=== PATIENT | male | born 1935 | race Caucasian/White ===

== ENCOUNTER 2018-05-26 10:03 | Inpatient (IN) | payer MEDICARE, OTHER ==
[~2018-05-26] VITALS: Ht 172.7 cm; Wt 117.9 kg
[~2018-05-26 10:03] MED LIST: ACIDOPHILUS1 EAC3 PO; CARVEDILOL6.25 MG PO; COQ-10100 MG PO; FISH OIL 1,001000 M2 PO; FUROSEMIDE 40 M40 M1 PO; LEVOTHYROXIN0.075 MG PO; LISINOPRIL5 MG PO; LOVASTATIN 20 M20 MG PO; MAGOX 400400 MG PO; MILK OF MA2400 MG/10 PO; PERCOCET PO; PLAVIX 75 MG TA75 M1 PO; VITAMIN E400 UNIT PO
[2018-05-26 10:05] VITALS: BP 107/75
[2018-05-26] MEDS ORDERED: COREG6.25 MG PO (10:17)
[2018-05-26] MEDS ORDERED: FLECAINIDE ACET50 M1 PO (10:18)
[2018-05-26] MEDS ORDERED: CARVEDILOL3.125 MG PO (10:19)
[2018-05-26 10:40] LABS: ABSOLUTE BASOPHILS 0.1 thou/uL (0.0-0.2); ABSOLUTE EOSINOPHILS 0.1 thou/uL (0.0-0.7); ABSOLUTE LYMPHOCYTES 1.9 thou/uL (0.8-5.3); ABSOLUTE MONOCYTES 0.6 thou/uL (0.0-1.2); ABSOLUTE NEUTROPHILS 5.7 thou/uL (1.6-8.1); BASOPHILS 0.8 %; EOSINOPHILS 1.7 %; HEMATOCRIT 48.3 % (42.0-52.0); HEMOGLOBIN 16.1 gm/dL (14.0-18.0); MCHC 33.2 g/dL (28.0-37.0); MCV 99.1 fL (80.0-100.0); MONOCYTES 7.3 %; MPV 8.7 fl. (7.2-11.1); NUCLEATED RBCS 0 /100WBC; PLATELET COUNT* 147 thou/uL (150-400); POLYS 68.2 %; RBC 4.87 mil/uL (4.50-6.00); RDW-CV 14.7 % (10.5-14.5); WBC 8.4 thou/uL (4.0-11.0)
[2018-05-26 10:50] LABS: ANION GAP 5 mmol/L (7-16); APTT 28.9 Seconds (25.0-31.3); BUN 21 mg/dL (7-18); CALCIUM 8.9 mg/dL (8.5-10.1); CHLORIDE 103 mmol/L (98-107); CO2 28 mmol/L (21-32); CREATININE 1.1 mg/dL (0.6-1.3); GLUCOSE 154 mg/dL (70-99); INR 1.2; POTASSIUM 4.2 mmol/L (3.5-5.1); PROTIME 11.9 Seconds (9.20-11.50); SODIUM 136 mmol/L (136-145)
[2018-05-26 11:01] LABS: ALBUMIN 3.5 g/dL (3.4-5.0); ALKALINE PHOSPHATASE 58 U/L (46-116); NT-PRO BRAIN NAT PEPTIDE 1627 pg/mL (<300); SGOT 25 U/L (15-37); SGPT 36 U/L (30-65); TOTAL BILIRUBIN 1.2 mg/dL (<0.1-1.0); TOTAL PROTEIN 6.4 g/dL (6.4-8.2); TROPONIN-I LEVEL <0.06 ng/mL (<0.06)
[2018-05-26 13:50] VITALS: BP 102/71
--- NOTE | 2018-05-26 14:18 | NUR ---
PT ORIENTED TO ROOM AND UNIT. BED LOW AND LOCKED, SIDE RAILS UPX 3, CALL LIGHT IN REACH. WILL CONTINUE TO ASSESS.
[2018-05-26 16:00] VITALS: BP 122/79
--- NOTE | 2018-05-26 16:15 | EKG ---
[place] [address] ELECTROCARDIOGRAM REPORT Name: NEEL CLANCY Room: [address] ADM IN M.R.#: [id number] Admission: 05/26/18 Attend Phys: Abhishek Carlton MD Discharge: Date of : 33 Report #: [id number] THIS REPORT FOR: //name// [facility] ED Test Date: 2018-05-26 Test Time: 10:07:44 Pat Name: SHAIKH CLANCY Department: Room: [facility] Gender: M Licensed Clinician: MS : 1935 Requested By: Dante Hughes Order Number: [id number] MD: Brain Lew Measurements Intervals [place] Rate: 99 P: 36 PA: 69 QRS: -70 QRSD: 190 T: QT: 291 QTc: 374 Interpretive Statements Ventricular-paced complexes No further analysis attempted due to paced rhythm Baseline wander in lead(s) II,V1,V2,V3,V4,V5 Compared to ECG 11/15/2016 09:42:32 p wave sensing no longer noted Electronically Signed On 05-26-2018 16:15:16 SALES STRATEGY MANAGER by Brain Lew [email or web address] <ELECTRONICALLY SIGNED> By: Brain Lew MD, FACC 05/26/18 1615 1007 1007 Brain Lew MD, FAC /EPI
--- NOTE | 2018-05-26 16:29 | NUR ---
DR. ARAUZ INSTRUCT THAT IT IS OK FOR PT TO HAVE PLAVIX WITH LOVENOX.
[2018-05-26 20:21] VITALS: BP 116/69
[2018-05-26] MEDS ORDERED: ATORVASTATIN CA40 MG PO (21:12)
[2018-05-27] VITALS: BP 109/70
[2018-05-27 04:00] VITALS: BP 123/74
[2018-05-27 05:31] LABS: ABSOLUTE LYMPHOCYTES 1.6 thou/uL (0.8-5.3); ABSOLUTE MONOCYTES 0.5 thou/uL (0.0-1.2); ABSOLUTE NEUTROPHILS 12.1 thou/uL (1.6-8.1); BASOPHILS 0.3 %; HEMATOCRIT 47.2 % (42.0-52.0); HEMOGLOBIN 15.9 gm/dL (14.0-18.0); LYMPHOCYTES 11.1 %; MCH 33.1 pg (26.0-34.0); MCHC 33.6 g/dL (28.0-37.0); MCV 98.7 fL (80.0-100.0); MONOCYTES 3.6 %; MPV 9.1 fl. (7.2-11.1); NUCLEATED RBCS 0 /100WBC; PLATELET COUNT* 140 thou/uL (150-400); RBC 4.78 mil/uL (4.50-6.00); RDW-CV 14.4 % (10.5-14.5); WBC 14.3 thou/uL (4.0-11.0)
--- NOTE | 2018-05-27 05:48 | NUR ---
PT IS ABLE TO COMMUNICATE HIS NEEDS TO STAFF EFFECTIVELY. HE HAS DENIED THE NEED FOR PAIN MEDICATION UP TO THIS TIME. HE HAS BEEN NPO SINCE SUPPER TIME FOR A LIPID PANEL BLOOD DRAW THIS MORNING.
[2018-05-27 06:13] LABS: ANION GAP 6 mmol/L (7-16); BUN 19 mg/dL (7-18); CALCIUM 9.2 mg/dL (8.5-10.1); CHLORIDE 100 mmol/L (98-107); CHOLESTEROL 128 mg/dL (<200); CO2 29 mmol/L (21-32); CREATININE 1.1 mg/dL (0.6-1.3); GLUCOSE 148 mg/dL (70-99); HDL CHOLESTEROL 41 mg/dL (>40); LDL CHOLESTEROL 75 mg/dL (<100); SODIUM 135 mmol/L (136-145); TC:HDL 3.1 Ratio (Not establshd); TRIGLYCERIDE 61 mg/dL (<150); VLDL 12 mg/dL (<40)
[2018-05-27 06:14] LABS: SERUM ASSESSMENT Clear
[2018-05-27 07:44] VITALS: BP 114/73
--- NOTE | 2018-05-27 08:21 | NUR ---
RECEIVED REPORT FROM NIGHT NURSE. ASSUMED CARE OF PATIENT. PATIENT IS AXOX4, DENIES ANY PAIN, NAUSEA OR SHORTNESS OF AIR AT THIS TIME. PATIENTS GOALS FOR TODAY ARE TO GO HOME, HE DOESN'T WANT TO BE IN THE HOSPITAL ANYMORE, STATES HE FEELS BETTER. MEDS TAKEN THIS AM, NO OTHER COMPLAINTS AT THIS TIME. BED IN LOWEST POSITION, CALL LIGHT IN REACH, PROFESSIONAL NURSING ASSISTANT IN PLACE.
[2018-05-27] MEDS ORDERED: ASPIR 8181 M1 PO (11:29)
[2018-05-27] MEDS ORDERED: METOLAZONE 5 MG5 MG PO (11:40)
[2018-05-27 11:49] VITALS: BP 114/73
--- NOTE | 2018-05-27 12:29 | NUR ---
PATIENT D/C TO HOME WITH . TAKEN BY WHEELCHAIR WITH ALL BELONGINGS AND DISCHARGE PAPERWORK. ALL QUESTIONS ANSWERED. NO PRESCRIPTIONS.
--- NOTE | 2018-05-27 14:46 | 2DMMODE ---
[place] [address] 2 D/M-MODE ECHOCARDIOGRAM Name: NEEL CLANCY Room: [address] IN [facility]#: [id number] Admission: 05/26/18 Attend Phys: Abhishek Carlton, Discharge: 05/27/18 Date of : 33 Date of Service: 05/27/18 1446 Report #: [id number] THIS REPORT FOR: //name// APPROVED REPORT Study performed: 05/27/2018 11:03:03 EXAM: Comprehensive 2D, Doppler, and color-flow Echocardiogram Patient Location: In-Patient Room #: [facility] Status: routine BSA: 2.28 HR: 69 bpm BP: 114/73 mmHg Rhythm: NSR Other Information Study Quality: Good Indications Congestive Heart Failure Dyspnea 2D Dimensions IVSd: 16.85 (7-11mm) LVOT Diam: 20.73 (18-24mm) LVDd: 46.07 mm PWd: 13.72 (7-11mm) Ascending Ao: 39.06 (22-36mm) LVDs: 30.26 (25-40mm) Aortic Root: 37.57 mm Volumes Left Atrial Volume (Systole) LA ESV Index: 29.80 mL/m2 Aortic Valve AoV Peak Ta.: 1.26 m/s AO Peak Gr.: 6.38 mmHg LVOT Max P.16 mmHg AO Mean Gr.: 3.65 mmHg LVOT Mean P.42 mmHg LVOT Max V: 1.02 m/s AO V2 VTI: 19.28 cm LVOT Mean V: 0.75 m/s SHARONDA (VTI): 3.08 cm2 LVOT V1 VTI: 17.61 cm TDI Medial E' Ta.: 0.12 m/s Lateral E' Ta.: 0.15 m/[place] [address] 2 D/M-MODE ECHOCARDIOGRAM Name: NEEL CLANCY Room: [address] IN M.R.#: [id number] Admission: 05/26/18 Attend Phys: Abhishek Carlton, Discharge: 05/27/18 Date of : 33 Date of Service: 05/27/18 1446 Report #: [id number] Tricuspid Valve RAP Estimate: 5.00 mmHg TR Peak Gr.: 24.01 mmHg RVSP: 29.00 mmHg PA Pressure: 29.00 mmHg Left Ventricle The left ventricle is normal size. There is normal LV segmental wall motion. Paradoxical septal motion consistent with conduction abnormality. Moderate concentric left ventricular hypertrophy. Left ventricular systolic function is normal. The left ventricular ejection fraction is within the normal range. LVEF is 55-60%. The left ventricular diastolic function is normal. Right Ventricle The right ventricle is normal size. The right ventricular systolic function is normal. Pacemaker lead is present in the right ventricle. Atria Left atrium is mildly dilated. The right atrium size is normal. Aortic Valve Mild aortic valve sclerosis. Trace aortic regurgitation. There is no aortic valvular stenosis. Mitral Valve The mitral valve is normal in structure. Mild mitral regurgitation. No evidence of mitral valve stenosis. Tricuspid Valve The tricuspid valve is normal in structure. Mild tricuspid regurgitation. No pulmonary hypertension. Pulmonic Valve The pulmonary valve is normal in structure. There is no pulmonic valvular regurgitation. Great Vessels The aortic root is normal in size. IVC is normal in size and collapses >50% with inspiration. Pericardium There is no pericardial effusion. <Conclusion> [place] [address] 2 D/M-MODE ECHOCARDIOGRAM Name: NEEL CLANCY Room: [address] IN .R.#: [id number] Admission: 05/26/18 Attend Phys: Abhishek Carlton, Discharge: 05/27/18 Date of : 34 Date of Service: 05/27/18 1446 Report #: [id number] Mild aortic valve sclerosis. There is no aortic valvular stenosis. Trace aortic regurgitation. LVEF is 55-60%. There is normal LV segmental wall motion. Paradoxical septal motion consistent with conduction abnormality. Mild mitral regurgitation. No evidence of mitral valve stenosis. <ELECTRONICALLY SIGNED> By: Matthew Chavez MD, FACC 05/27/18 1446 1446 1446 Matthew Chavez MD, FAC /INF
--- NOTE | 2018-05-27 15:07 | NUR ---
INITIAL ASSESSMENT: YUDELKA SPK W/PT & HIS SPOUSE, SEPTEMBER TO DISCUSS D/C PLANNING, HOME SITUATION, & TO EDU ON CM ROLE. PT A&OX4. LIVES @ HOME W/SPOUSE. SPOUSE ASSIST W/ADLs. PT HAS W/C & WALKER @ HOME. PT DRIVES. NO HX W/SNF, BUT USED HH IN THE PAST WHEN LIVED IN [place]. PT DENIES ANY NEEDS AT THIS TIME. CM TO CONT TO FOLLOW PT TO PROVIDE ASSISTANCE PRN.
--- NOTE | 2018-05-28 12:35 | CON ---
[address] [address] CONSULTATION Name: NEEL CLANCY Room: [address] IN M.R.#: [id number] Admission: 05/26/18 Attend Phys: Abhishek Carlton MD Discharge: 05/27/18 Date of : 34 Report #: [id number] THIS REPORT FOR: //name// CC: Abhishek Mcclain DATE OF SERVICE: 05/26/2018 HISTORY OF PRESENT ILLNESS: The patient is an 82-year-old white male who I was asked to see in the hospital today because of shortness of breath. The patient apparently presented back in 2008 with arm pain. He was found to have coronary artery disease and underwent triple vessel coronary artery bypass surgery in [place]. He had coronary stents about a year later. He apparently had restenosis, required another stent a year after that. Recently, he has been followed by my partner, Dr. Davies. He presented 2 years ago with heart block and had a permanent pacemaker inserted by Dr. Davies. On the monitor, he apparently was noted to have atrial arrhythmias and was placed on flecainide. He has a long history of edema. He is also morbidly obese, standing 5 feet 8 inches, weighing 270 pounds. Recently, Dr. Davies increased his dose of Lasix. However, the patient continues to be short of breath and has swelling. He has been waking up at night short of breath. He complained of fatigue. He came to the Emergency Room and was admitted. He denied any fever, cough, chest pain. He notes occasional racing of his heart. PAST MEDICAL HISTORY: He has had hip surgery, hypertension, hyperlipidemia. MEDICATIONS: Consists of lovastatin, oxycodone, Synthroid, clopidogrel, lisinopril, furosemide, carvedilol, flecainide. ALLERGIES: He has no known drug allergies. FAMILY HISTORY: Negative for heart disease. SOCIAL HISTORY: He is . He and his live in [place]. No smoking. Quit alcohol years ago. REVIEW OF SYSTEMS: He has had no history of stroke, asthma, peptic ulcer disease, liver disease, kidney disease, cancer, psychiatric illness, chronic skin condition. PHYSICAL EXAMINATION: GENERAL: Revealed an obese, elderly male, lying in bed. He appeared in no distress. VITAL SIGNS: He had a blood pressure of 110/60. His pulse [place] [address] CONSULTATION Name: NEEL CLANCY Room: [address]#: [id number] Admission: 05/26/18 Attend Phys: Abihshek Carlton MD Discharge: 05/27/18 Date of : 34 Report #: [id number] afebrile. HEENT: He was anicteric. Conjunctivae pink. Mucous members moist. NECK: Veins difficult to assess due to obesity. No carotid bruits. CHEST: Decreased breath sounds at bases. CARDIOVASCULAR: Regular rate and rhythm without gallops or murmurs. ABDOMEN: Obese. EXTREMITIES: Had trace edema. Dorsalis pedis pulse cannot be palpated. SKIN: Cool and dry. NEUROLOGIC: Nonfocal. LYMPH: No adenopathy. MUSCULOSKELETAL: No joint effusion. LABORATORY DATA: His ECG showed a ventricular paced rhythm. His workup, he had an echocardiogram in 10/2016 that showed ejection fraction of 60%, biatrial enlargement, aortic sclerosis. Workup in the Emergency Room today, he had a portable chest x-ray that showed cardiomegaly, otherwise clear lung horton. CT scan of the chest using a PE protocol today showed no pulmonary embolus, normal heart size. Lab work, sodium 136, creatinine 1.1, glucose is 154. Troponin 0.06. BNP 1627. White blood cell count 8.4, hemoglobin 16.1. IMPRESSION AND RECOMMENDATIONS: 1. Acute on chronic diastolic heart failure. Recommend Lasix. 2. Previous coronary artery bypass surgery. No recent angina. 3. History of atrial arrhythmias. The patient is on flecainide. 4. Hypertension. The patient has been on an KERI inhibitor and beta hilton. 5. Hyperlipidemia. The patient is on a statin drug. 6. History of heart block. The patient has a pacemaker in place. <ELECTRONICALLY SIGNED> By: Brain Lew MD, FACC 05/28/18 1235 1500 58Brain Lew MD, FAC /nt
== END 2018-05-27 12:30 | disposition home or self-care (01) | DRG 293 ==
LOC: M.ERS 10:03 → M.2W 12:17 → M.TBA-ER 12:17 → M.2W 14:09
PROVIDERS: Family Medicine; ADMIT Internal Medicine
DX: I11.0 Hypertensive heart disease with heart failure (principal); I50.33 Acute on chronic diastolic (congestive) heart failure; G47.33 Obstructive sleep apnea (adult) (pediatric); E66.01 Morbid (severe) obesity due to excess calories; E03.9 Hypothyroidism, unspecified; I48.0 Paroxysmal atrial fibrillation; I25.10 Atherosclerotic heart disease of native coronary artery without angina pectoris; M19.90 Unspecified osteoarthritis, unspecified site; E78.5 Hyperlipidemia, unspecified; Z96.641 Presence of right artificial hip joint; I25.2 Old myocardial infarction; Z95.0 Presence of cardiac pacemaker; Z95.1 Presence of aortocoronary bypass graft; Z79.02 Long term (current) use of antithrombotics/antiplatelets; Z79.899 Other long term (current) drug therapy; Z68.39 Body mass index [BMI] 39.0-39.9, adult

== ENCOUNTER → 2018-05-30 | Outpatient (CLI) | payer MEDICARE, OTHER ==
[~2018-05-30] MED LIST changes: +ASPIR 8181 M1 PO; +ATORVASTATIN CA40 MG PO; +CARVEDILOL3.125 MG PO; +COREG6.25 MG PO; +FLECAINIDE ACET50 M1 PO; +METOLAZONE 5 MG5 MG PO
== END ==
LOC: M.SLEEPLAB 10:00
DX: G47.33 Obstructive sleep apnea (adult) (pediatric) (principal)

== ENCOUNTER 2018-07-13 14:37 | Emergency (ER) | payer MEDICARE, OTHER ==
[~2018-07-13] VITALS: Ht 172.7 cm; Wt 122.5 kg
[2018-07-13] MEDS ORDERED: VITAMIN D3400 UNI2 PO (15:00)
[2018-07-13] MEDS ORDERED: COQ-10100 MG PO (15:00)
[2018-07-13 15:33] LABS: ABSOLUTE EOSINOPHILS 0.2 thou/uL (0.0-0.7); ABSOLUTE LYMPHOCYTES 1.4 thou/uL (0.8-5.3); ABSOLUTE MONOCYTES 0.6 thou/uL (0.0-1.2); ABSOLUTE NEUTROPHILS 5.4 thou/uL (1.6-8.1); BASOPHILS 0.6 %; EOSINOPHILS 2.3 %; HEMATOCRIT 44.2 % (42.0-52.0); HEMOGLOBIN 14.7 gm/dL (14.0-18.0); LYMPHOCYTES 18.7 %; MCH 32.3 pg (26.0-34.0); MCHC 33.3 g/dL (28.0-37.0); MONOCYTES 8.2 %; MPV 8.4 fl. (7.2-11.1); NUCLEATED RBCS 0 /100WBC; PLATELET COUNT* 155 thou/uL (150-400); POLYS 70.2 %; RBC 4.56 mil/uL (4.50-6.00); RDW-CV 15.7 % (10.5-14.5); WBC 7.7 thou/uL (4.0-11.0)
[2018-07-13 15:48] LABS: ANION GAP 8 mmol/L (7-16); BUN 24 mg/dL (7-18); CALCIUM 8.8 mg/dL (8.5-10.1); CHLORIDE 105 mmol/L (98-107); CO2 29 mmol/L (21-32); CREATININE 1.3 mg/dL (0.6-1.3); GLUCOSE 118 mg/dL (70-99); POTASSIUM 3.9 mmol/L (3.5-5.1); SODIUM 142 mmol/L (136-145); TROPONIN-I LEVEL <0.06 ng/mL (<0.06)
[2018-07-13 15:50] LABS: ALBUMIN 3.2 g/dL (3.4-5.0); ALKALINE PHOSPHATASE 66 U/L (46-116); NT-PRO BRAIN NAT PEPTIDE 2788 pg/mL (<300); SGOT 30 U/L (15-37); SGPT 34 U/L (30-65); TOTAL BILIRUBIN 1.3 mg/dL (<0.1-1.0)
[2018-07-13 15:56] LABS: BE 1.7 mmol/L (-2 to +3); PCO2 37.3 mmHg (35.0-45.0); PO2 69.3 mmHg (75.0-100.0); pH 7.452 (7.340-7.450)
[2018-07-13 16:03] LABS: INR 1.2; PROTIME 12.7 Seconds (9.20-11.50)
[2018-07-13 17:25] VITALS: BP 122/87
--- NOTE | 2018-07-14 09:59 | EKG ---
[place] [address] ELECTROCARDIOGRAM REPORT Name: NEEL CLANCY [id number] Admission: 07/13/18 Attend Phys: Discharge: 07/13/18 Date of : 34 Report #: [id number] THIS REPORT FOR: //name// [facility] ED Test Date: 2018-07-13 Test Time: 15:00:22 Pat Name: NEEL CLANCY Department: Room: Gender: M Test Center Manager: JAGDEEP : 1935 Requested By: Lidia Cardenas Order Number: [id number] MD: Brain Lew Measurements Intervals [place] Rate: 69 P: 0 MO: 174 QRS: -51 QRSD: 211 T: 103 QT: 535 QTc: 574 Interpretive Statements Ventricular-paced rhythm No further analysis attempted due to paced rhythm Compared to ECG 05/26/2018 10:07:44 No significant changes Electronically Signed On 07-14-2018 9:59:05 CDT by Brain Lew [email or web address] <ELECTRONICALLY SIGNED> By: Brain Lew MD, [facility] 07/14/18 0959 1500 1500 Brain Lew MD, FAC /EPI
== END 2018-07-13 17:26 | disposition home or self-care (01) ==
LOC: M.ERS 14:37
PROVIDERS: Personal Emergency Response Attendant
DX: I50.9 Heart failure, unspecified (principal); R60.0 Localized edema; G47.33 Obstructive sleep apnea (adult) (pediatric); E66.01 Morbid (severe) obesity due to excess calories; E03.9 Hypothyroidism, unspecified; I25.10 Atherosclerotic heart disease of native coronary artery without angina pectoris; M19.90 Unspecified osteoarthritis, unspecified site; Z96.641 Presence of right artificial hip joint; Z68.41 Body mass index [BMI] 40.0-44.9, adult

== ENCOUNTER 2018-07-19 13:20 | Inpatient (IN) | payer MEDICARE, OTHER ==
[~2018-07-19] VITALS: Ht 152.4 cm; Wt 128.4 kg
[2018-07-19] VITALS (17 sets, daily range): BP systolic 92–134; BP diastolic 61–101
[~2018-07-19 13:20] MED LIST changes: -LEVOTHYROXIN0.075 MG PO; +SYNTHROID75 MCG PO; +VITAMIN D3400 UNI2 PO
[2018-07-19] MEDS ORDERED: LOVASTATIN 20 M20 MG PO (13:27)
[2018-07-19 14:22] LABS: ABSOLUTE BASOPHILS 0.1 thou/uL (0.0-0.2); ABSOLUTE EOSINOPHILS 0.1 thou/uL (0.0-0.7); ABSOLUTE LYMPHOCYTES 2.4 thou/uL (0.8-5.3); ABSOLUTE NEUTROPHILS 7.4 thou/uL (1.6-8.1); BASOPHILS 0.9 %; EOSINOPHILS 0.9 %; HEMATOCRIT 45.6 % (42.0-52.0); HEMOGLOBIN 15.4 gm/dL (14.0-18.0); LYMPHOCYTES 21.9 %; MCH 32.5 pg (26.0-34.0); MCHC 33.8 g/dL (28.0-37.0); MCV 96.3 fL (80.0-100.0); MONOCYTES 9.1 %; MPV 8.7 fl. (7.2-11.1); NUCLEATED RBCS 0 /100WBC; PLATELET COUNT* 149 thou/uL (150-400); POLYS 67.2 %; RBC 4.74 mil/uL (4.50-6.00); RDW-CV 16.1 % (10.5-14.5); WBC 11.1 thou/uL (4.0-11.0)
[2018-07-19 14:36] LABS: APTT 29.8 Seconds (25.0-31.3); INR 1.3; PROTIME 13.4 Seconds (9.20-11.50)
[2018-07-19 14:50] LABS: ANION GAP 11 mmol/L (7-16); BUN 32 mg/dL (7-18); CALCIUM 9.1 mg/dL (8.5-10.1); CHLORIDE 100 mmol/L (98-107); CO2 25 mmol/L (21-32); CREATININE 1.6 mg/dL (0.6-1.3); GLUCOSE 149 mg/dL (70-99); POTASSIUM 4.7 mmol/L (3.5-5.1); SODIUM 136 mmol/L (136-145); TROPONIN-I LEVEL <0.06 ng/mL (<0.06)
[2018-07-19 14:54] LABS: ALBUMIN 3.5 g/dL (3.4-5.0); ALKALINE PHOSPHATASE 67 U/L (46-116); LIPASE 115 U/L (73-393); MAGNESIUM 2.2 mg/dL (1.8-2.4); NT-PRO BRAIN NAT PEPTIDE 6863 pg/mL (<300); SGOT 33 U/L (15-37); SGPT 37 U/L (30-65); TOTAL BILIRUBIN 1.6 mg/dL (<0.1-1.0); TOTAL PROTEIN 6.4 g/dL (6.4-8.2)
[2018-07-19 14:56] LABS: BE -2.7 mmol/L (-2 to +3); PCO2 29.6 mmHg (35.0-45.0); PO2 60.7 mmHg (75.0-100.0); pH 7.447 (7.340-7.450)
[2018-07-20] VITALS (11 sets, daily range): BP systolic 87–157; BP diastolic 63–94
[2018-07-20 10:41] LABS: HEMATOCRIT 44.8 % (42.0-52.0); HEMOGLOBIN 14.9 gm/dL (14.0-18.0); MCH 32.5 pg (26.0-34.0); MCHC 33.2 g/dL (28.0-37.0); MCV 97.9 fL (80.0-100.0); NUCLEATED RBCS 0 /100WBC; PLATELET COUNT* 140 thou/uL (150-400); RBC 4.57 mil/uL (4.50-6.00); RDW-CV 15.9 % (10.5-14.5); WBC 10.7 thou/uL (4.0-11.0)
[2018-07-20 10:53] LABS: ALBUMIN 3.1 g/dL (3.4-5.0); CALCIUM 8.8 mg/dL (8.5-10.1); CREATININE 1.4 mg/dL (0.6-1.3); PHOSPHORUS* 3.8 mg/dL (2.5-4.9); POTASSIUM 4.9 mmol/L (3.5-5.1); TOTAL BILIRUBIN 1.2 mg/dL (<0.1-1.0); TOTAL PROTEIN 6.1 g/dL (6.4-8.2)
[2018-07-20 11:11] LABS: ABSOLUTE LYMPHOCYTES 1.2 thou/uL (0.8-5.3); ABSOLUTE MONOCYTES 0.3 thou/uL (0.0-1.2); ABSOLUTE NEUTROPHILS 9.2 thou/uL (1.6-8.1)
[2018-07-20 11:12] LABS: ANISOCYTOSIS Occasional; PLATELET ESTIMATE DECREASED
--- NOTE | 2018-07-20 15:09 | EKG ---
[place] [address] ELECTROCARDIOGRAM REPORT Name: NEEL CLANCY Room: [address] ADM IN .R.#: [id number] Admission: 07/19/18 Attend Phys: rFank Charles MD Discharge: Date of : 34 Report #: [id number] THIS REPORT FOR: //name// [facility] ED Test Date: 2018-07-19 Test Time: 13:24:51 Pat Name: NEEL CLANCY Department: Room: [facility] Gender: M System Controller: JT : 1935 Requested By: Dante Hughes Order Number: [id number] MD: Brain Lew Measurements Intervals [place] Rate: 107 P: HI: 134 QRS: 234 QRSD: 173 T: 108 QT: 359 QTc: 479 Interpretive Statements ventricular-paced rhythm Compared to ECG 07/13/2018 15:00:22 rate increased Electronically Signed On 07-20-2018 15:09:00 CDT by Brain eLw [email or web address] <ELECTRONICALLY SIGNED> By: Brain Lew MD, [facility] 07/20/18 1509 1324 1324 Brain Lew MD, FAC /EPI
--- NOTE | 2018-07-20 15:09 | EKG ---
[place] [address] ELECTROCARDIOGRAM REPORT Name: NEEL CLANCY Room: [address] ADM IN M.R.#: [id number] Admission: 07/19/18 Attend Phys: Frank Charles MD Discharge: Date of : 34 Report #: [id number] THIS REPORT FOR: //name// [facility] ED Test Date: 2018-07-19 Test Time: 14:20:08 Pat Name: NEEL CLANCY Department: Room: [address] Gender: M Wash Barrel Leader: UNKNOWN : 1935 Requested By: Dante Hughes Order Number: [id number] Bhavesh MD: Brain Lew Measurements Intervals [place] Rate: 123 P: IA: 93 QRS: -74 QRSD: 222 T: 117 QT: 443 QTc: 634 Interpretive Statements ventricular-paced rhythm Electronically Signed On 07-20-2018 15:09:30 CDT by Brain Lew [email or web address] <ELECTRONICALLY SIGNED> By: Brain Lew MD, [facility] 07/20/18 1509 1420 1420 Brain Lew MD, FACC /EPI
[2018-07-21 00:01] VITALS: BP 114/70
[2018-07-21 01:23] LABS: HEMATOCRIT 44.5 % (42.0-52.0); HEMOGLOBIN 14.8 gm/dL (14.0-18.0); MCH 32.4 pg (26.0-34.0); MCHC 33.2 g/dL (28.0-37.0); MCV 97.7 fL (80.0-100.0); MPV 9.2 fl. (7.2-11.1); NUCLEATED RBCS 0 /100WBC; PLATELET COUNT* 155 thou/uL (150-400); RBC 4.56 mil/uL (4.50-6.00); RDW-CV 15.5 % (10.5-14.5); WBC 16.8 thou/uL (4.0-11.0)
[2018-07-21 04:00] VITALS: BP 114/78
[2018-07-21 04:48] LABS: ABSOLUTE MONOCYTES 0.5 thou/uL (0.0-1.2); ABSOLUTE NEUTROPHILS 15.3 thou/uL (1.6-8.1); PLATELET ESTIMATE ADEQUATE
[2018-07-21 04:49] LABS: POLYCHROMASIA 1+
[2018-07-21 08:00] VITALS: BP 106/74
[2018-07-21 12:00] VITALS: BP 98/62
--- NOTE | 2018-07-21 14:13 | CON ---
[address] [address] CONSULTATION Name: NEEL CLANCY Room: [address] IN M.R.#: [id number] Admission: 07/19/18 Attend Phys: Frank Charles MD Discharge: Date of : 34 Report #: [id number] THIS REPORT FOR: //name// CC: Richie Charles REQUESTING PHYSICIAN: Frank Charles MD INDICATION FOR CONSULTATION: Shortness of breath. HISTORY OF PRESENT ILLNESS: This is an 82-year-old gentleman. He has presented with increasing shortness of breath as well as swelling of lower extremities. He also is having significant atrial arrhythmias. The patient has a pacemaker, also has a previous history of atrial arrhythmias as well. Currently, he is being paced at a very variable ranged from a normal range at times. The weight is increasing up to 170. He does have a longstanding history of swelling of lower extremities. He does not report any increase in this recently. He does report increasing shortness of breath. He has had a cough with white, as well as yellow sputum. He is unable to describe if the sputum is different from baseline. There is no chest pain. He does not have upper respiratory complaints. The patient recently had a home sleep study performed, which shows severe obstructive sleep apnea. The patient says he does not currently have a CPAP at home. Per the records, he may have had a CPAP in the past, with which he may have been noncompliant. The patient was scheduled to be set up with CPAP again tomorrow. The patient's renal function at baseline is normal with a creatinine of 1.1. He did have an elevation in creatinine up to 1.6 yesterday. His previous chest x-rays raise the possibility of an underlying interstitial lung disease. He also has some infiltrates on the previous chest x-rays. There are no new findings on his new chest x-ray. The patient did wear BiPAP last night. The patient answers to the negative for 12 questions for review of systems except as mentioned above. PAST MEDICAL HISTORY: Severe obstructive sleep apnea. See recent home sleep study in the records: Coronary artery disease, status post CABG with congestive heart failure. It is despite the fact that his left ventricular ejection fraction on his last echo is normal at 55%-60%, status post pacemaker status. History of atrial arrhythmias, longstanding history of swelling of lower extremities, hypothyroidism, hyperlipidemia, morbid obesity, osteoarthritis, lumbar stenosis. SOCIAL HISTORY: Lifetime nonsmoker. No known history of heavy alcohol use or illegal drug use. ALLERGIES: No known drug allergies. CURRENT MEDICATIONS: List [place] [employer] [place] [address] CONSULTATION Name: NEEL CLANCY Room: [address] IN M.R.#: [id number] Admission: 07/19/18 Attend Phys: Frank Charles MD Discharge: Date of : 34 Report #: [id number] HOME MEDICATIONS: List also in [facility] reviewed. FAMILY HISTORY: Reviewed, not pertinent to current presentation. PHYSICAL EXAMINATION: GENERAL: He is alert, awake and oriented. He does appear to be anxious, has highly variable heart rate from [address] to 170 and a paced rhythm. VITAL SIGNS: Blood pressure is 127/61. He is afebrile with a temperature of 36.7. He is requiring 5 liters of oxygen to maintain O2 saturation in the low 90s. He is not on supplemental oxygen at home. His respiratory rate was around 20 at the time of my examination. Body mass index is elevated to 54. HEENT: Head is normocephalic and atraumatic. Pupils are equal and reactive. There is no throat erythema. Airway is Mallampati 3. NECK: Does not show raised JVP, asymmetry, mass or lymph nodes. CHEST: Symmetrical expansion on inspection and palpation. On auscultation, breath sounds are bilaterally equal, decreased. Expirations are prolonged. There are expiratory wheezes bilaterally. HEART: Regular with rate frequently varying though as mentioned above. Tachycardia noted. ABDOMEN: Mildly distended, nontender. EXTREMITIES: Lower extremities show 2+ edema, no calf tenderness. SKIN: Dry and intact. NEUROLOGICAL: Moves all extremities bilaterally equally and spontaneously with no focal deficit identified. LABORATORY DATA: The patient's chest x-ray done yesterday is reviewed and compared to the patient's previous chest x-rays, as well as the last CT chest. This is as described below in more detail. The patient's lab work from yesterday including arterial blood gases are in [facility] and these are reviewed with metabolic acidosis compensated is noted. ASSESSMENT AND PLAN: 1. Acute hypoxemic respiratory failure. The patient is having significant atrial arrhythmias. He also appears to be fluid overloaded. These are the primary etiologies of his acute hypoxemic respiratory failure. Note that he is not on oxygen at home. In addition, thromboembolism is not completely ruled out at this time. At this time, I strongly feel that we need to continue him on a BiPAP while asleep. A BiPAP of 14/8 with a rate of 12 is ordered while asleep and p.r.n. The patient did wear BiPAP at night yesterday. 2. Atrial arrhythmias/tachycardia/history of pacemaker placement. Cardiology service is on the case. I feel that a significant component of his respiratory failure/fluid overload is related to this. If his heart rate is brought under better control, then his fluid overload, as well as respiratory failure will improve. I would defer to the cardiology Service. 3. Fluid overload. See discussion as above. I will like to repeat some labs, as well as a chest x-ray now and see where we stand. [place] [address] CONSULTATION Name: CLANCY,NEEL [place] Room: [address] IN [facility].#: [id number] Admission: 07/19/18 Attend Phys: Frank Charles MD Discharge: Date of : 34 Report #: [id number] his fluid overload at this time will be rate control. Certainly, Lasix could be given. I did not order for now considering that there is elevation in creatinine on his last available lab work. 4. Bronchospasm. There is mention of chronic obstructive pulmonary disease on the records. Note, however, that he is a lifetime nonsmoker. It appears more likely to me that he either has developed acute bronchospasm now or has a previous history of bronchial asthma. It appears unlikely that he in fact has chronic obstructive pulmonary disease. Regardless, we will continue with Solu-Medrol as currently prescribed. Considering considerable arrhythmias, I was switched his bronchodilators over to Xopenex. 5. Severe obstructive sleep apnea. See recent home sleep study in the records, needs a CPAP or BiPAP set up at home. For now, I ordered BiPAP as mentioned above. 6. Pulmonary infiltrates. There are some pulmonary infiltrates on the patient's chest x-ray. This is not significantly changed compared with the patient's previous chest x-ray. Last CT shows some basilar infiltrates as well. I suspect that the patient may in fact have an underlying interstitial lung disease as well. While there is no definite evidence of a new infiltrate or pneumonia at this time, the patient is already on Levaquin and I decided to continue and make no change at this time. 7. Edema/evaluation for thromboembolic phenomenon. I will go ahead and do venous Dopplers. We will also go ahead and check a D-dimer. A low D-dimer will rule out pulmonary emboli. High D-dimer will be nondiagnostic for this patient. I do not intend to do a CTA chest, as this will be too high risk. Should the patient failed to improve, then empiric anticoagulation may need to be considered. I would defer to the cardiology Service if anticoagulation is needed from their point of view. 8. Acute renal insufficiency. See discussion above. 9. Possible underlying interstitial lung disease. After recovery from the current episode and when more euvolemic, I would favor obtaining a CT chest with high resolution cuts, as well as pulmonary function tests. The patient is critically ill at this time. Total time spent in critical care of this patient today is 36 minutes. <ELECTRONICALLY SIGNED> By: Karol Samaniego MD 07/21/18 1413 1029 0314Ajohnnie Tuttle MD /nt
[2018-07-21 16:01] VITALS: BP 114/84
[2018-07-21 22:00] VITALS: BP 129/79
[2018-07-22 04:00] VITALS: BP 135/81
[2018-07-22 05:32] LABS: ABSOLUTE LYMPHOCYTES 1.3 thou/uL (0.8-5.3); ABSOLUTE MONOCYTES 0.5 thou/uL (0.0-1.2); ABSOLUTE NEUTROPHILS 16.9 thou/uL (1.6-8.1); BASOPHILS 0.2 %; EOSINOPHILS 0.1 %; HEMATOCRIT 44.1 % (42.0-52.0); HEMOGLOBIN 14.7 gm/dL (14.0-18.0); LYMPHOCYTES 6.8 %; MCH 32.1 pg (26.0-34.0); MCHC 33.2 g/dL (28.0-37.0); MCV 96.7 fL (80.0-100.0); MONOCYTES 2.5 %; NUCLEATED RBCS 0 /100WBC; PLATELET COUNT* 173 thou/uL (150-400); POLYS 90.4 %; RBC 4.57 mil/uL (4.50-6.00); RDW-CV 16.1 % (10.5-14.5); WBC 18.7 thou/uL (4.0-11.0)
[2018-07-22 05:40] LABS: CALCIUM 9.4 mg/dL (8.5-10.1); CREATININE 1.6 mg/dL (0.6-1.3); POTASSIUM 5.3 mmol/L (3.5-5.1)
[2018-07-22 08:30] VITALS: BP 120/77
--- NOTE | 2018-07-22 10:03 | EKG ---
[place] [address] ELECTROCARDIOGRAM REPORT Name: NEEL CLANCY Room: [address] ADM IN M.R.#: [id number] Admission: 07/19/18 Attend Phys: Frank Charles MD Discharge: Date of : 34 Report #: [id number] THIS REPORT FOR: //name// [facility] Test Date: 2018-07-21 Test Time: 07:57:16 Pat Name: SHAIKHTRAMAINE MIMSS Department: Room: [facility] Gender: Service Agent: LINNEA : 1935 Requested By: Brain Lew Order Number: [id number] Reading MD: Matthew Chavez Measurements Intervals [place] Rate: 94 P: 0 IA: 171 QRS: -52 QRSD: 214 T: 126 QT: 425 QTc: 532 Interpretive Statements Ventricular-paced complexes No further analysis attempted due to paced rhythm Compared to ECG 07/19/2018 14:20:08 No significant changes Electronically Signed On 07-22-2018 10:03:17 CDT by Matthew Chavez [email or web address] <ELECTRONICALLY SIGNED> By: Matthew Chavez MD, FACC 07/22/18 1003 0757 0757 Matthew Chavez MD, [facility] /EPI
--- NOTE | 2018-07-22 16:17 | CON ---
[address] [address] CONSULTATION Name: NEEL CLANCY Room: [address] IN M.R.#: [id number] Admission: 07/19/18 Attend Phys: Frank Charles MD Discharge: Date of : 34 Report #: [id number] THIS REPORT FOR: //name// CC: Richie Charles DATE OF SERVICE: 07/20/2018 CARDIOLOGY CONSULTATION HISTORY OF PRESENT ILLNESS: The patient is an 82-year-old white male who I was asked to see in the hospital after he complained of weakness. The patient has an extensive past medical history. Most of the history is obtained from the patient's spouse who was present. The patient had coronary artery bypass surgery in [place] back in 2008. He apparently had presented with chest pain. He had triple vessel bypass surgery. The notes that then 8 months later, he required coronary artery stenting. In 2017, he had a permanent pacemaker inserted here at [facility] by Dr. Davies. According to the , Dr. Davies recommended Xarelto, but the patient refused in the past. He denies a history of atrial fibrillation. The patient apparently was just admitted here to [facility] a month ago with shortness of breath. He is felt to have diastolic heart failure. Recently, the patient has been weak and no appetite. He could not even stand up yesterday, so paramedics were called. He was brought here to [facility]. He was noted to be tachycardic and Cardiology consultation requested. He denies recent chest pain. He does notice heart racing. He has felt lightheaded. PAST MEDICAL HISTORY: He has had previous hip surgery. He has hypertension. He has sleep apnea and uses CPAP. MEDICATIONS: On admission consisted of flecainide, aspirin, lovastatin, Synthroid, Plavix, lisinopril, Lasix, carvedilol. ALLERGIES: He has no known drug allergies. FAMILY HISTORY: Unknown since his mother was . SOCIAL HISTORY: He is . He and his live in [place]. 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 No smoking or alcohol use. REVIEW OF SYSTEMS: He is overweight, standing 5 feet 8 inches, weighing 270 pounds. He has sleep apnea, uses CPAP. No history of peptic ulcer disease, liver disease, kidney disease, cancer, psychiatric illness, [place] [address] CONSULTATION Name: LUCA CLANCYTRAMAINE [place] Room: [address]#: [id number] Admission: 07/19/18 Attend Phys: Frank Charles MD Discharge: Date of : 34 Report #: [id number] PHYSICAL EXAMINATION: GENERAL: Revealed an elderly obese male lying in bed. He appeared in no acute distress. VITAL SIGNS: He had a blood pressure of 100/68, pulse is 100 and irregular, he is afebrile. HEENT: He is anicteric. Conjunctivae pink. Mucous membranes moist. NECK: Veins cannot be assessed due to his obesity. No carotid bruits. CHEST: Clear to auscultation. CARDIAC: Irregular rhythm. ABDOMEN: Obese. EXTREMITIES: Had trace edema. SKIN: Cool and dry. NEUROLOGIC: Nonfocal. LYMPHATIC: No adenopathy. MUSCULOSKELETAL: No joint effusion. LABORATORY DATA: His ECG on admission yesterday appears to show atrial fibrillation with ventricular paced beats and a rapid rate. His workup, he had an echocardiogram done last month that showed aortic sclerosis. Ejection fraction 60%, mild mitral regurgitation. His x-rays, he had a portable chest x-ray yesterday that showed cardiomegaly, mild pulmonary edema. He had venous duplex scan of his legs done that showed no DVT. He actually had a CT scan of the chest using a PE protocol last month that showed no evidence of pulmonary embolus. His lab work, sodium 133, creatinine 1.4, glucose 235. Liver function studies were normal. Troponin 0.06. BNP 6863. Last month cholesterol 128, triglycerides 61, HDL 41, LDL 75. Last month, his TSH was 0.6. White blood cell count 10.7, hemoglobin 14.9. IMPRESSION AND RECOMMENDATIONS: 1. Acute on chronic diastolic heart failure. Recommend Lasix. 2. Atrial fibrillation. Despite flecainide, I would consider switching to amiodarone. I would recommend anticoagulation. 3. History of coronary artery disease. No recent angina. 4. Obesity. 5. Sleep apnea. The patient is on continuous positive airway pressure. 6. Hypertension. <ELECTRONICALLY SIGNED> By: Brain Lew MD, [facility] 07/22/18 1617 1419 [id number] Lew MD, [facility] /nt
[2018-07-22 17:46] VITALS: BP 115/79
[2018-07-22 20:00] VITALS: BP 129/77
[2018-07-23] VITALS: BP 113/73
[2018-07-23 04:00] VITALS: BP 128/78
[2018-07-23 10:39] LABS: ABSOLUTE MONOCYTES 0.6 thou/uL (0.0-1.2); ABSOLUTE NEUTROPHILS 12.3 thou/uL (1.6-8.1); BASOPHILS 0.2 %; HEMOGLOBIN 14.3 gm/dL (14.0-18.0); LYMPHOCYTES 7.3 %; MCH 32.5 pg (26.0-34.0); MCHC 33.3 g/dL (28.0-37.0); MCV 97.4 fL (80.0-100.0); MONOCYTES 4.2 %; MPV 8.9 fl. (7.2-11.1); NUCLEATED RBCS 0 /100WBC; PLATELET COUNT* 148 thou/uL (150-400); POLYS 88.3 %; RBC 4.42 mil/uL (4.50-6.00); WBC 13.9 thou/uL (4.0-11.0)
[2018-07-23 10:50] LABS: ALBUMIN 3.2 g/dL (3.4-5.0); CREATININE 1.5 mg/dL (0.6-1.3); POTASSIUM 4.9 mmol/L (3.5-5.1); TOTAL BILIRUBIN 1.2 mg/dL (<0.1-1.0)
[2018-07-23 11:44] VITALS: BP 113/64
[2018-07-23 15:48] VITALS: BP 122/77
[2018-07-23 20:00] VITALS: BP 118/81
[2018-07-24] VITALS: BP 116/75
[2018-07-24 04:00] VITALS: BP 93/54
[2018-07-24 05:18] LABS: CALCIUM 8.7 mg/dL (8.5-10.1); CREATININE 1.3 mg/dL (0.6-1.3); POTASSIUM 4.4 mmol/L (3.5-5.1)
[2018-07-24 08:00] VITALS: BP 121/72
[2018-07-24 11:30] VITALS: BP 103/57
[2018-07-24 13:53] LABS: BE 8.4 mmol/L (-2 to +3); PCO2 45.7 mmHg (35.0-45.0); PO2 89.4 mmHg (75.0-100.0); pH 7.479 (7.340-7.450)
[2018-07-24 17:27] VITALS: BP 116/68
[2018-07-24 20:00] VITALS: BP 109/62
[2018-07-25 01:02] VITALS: BP 97/60
[2018-07-25 04:00] VITALS: BP 130/70
[2018-07-25 05:09] LABS: HEMOGLOBIN 15.3 gm/dL (14.0-18.0); MCH 32.9 pg (26.0-34.0); MCHC 34.1 g/dL (28.0-37.0); MCV 96.6 fL (80.0-100.0); MPV 8.6 fl. (7.2-11.1); RBC 4.66 mil/uL (4.50-6.00); RDW-CV 16.1 % (10.5-14.5); WBC 9.3 thou/uL (4.0-11.0)
[2018-07-25 05:39] LABS: ALBUMIN 3.2 g/dL (3.4-5.0); CALCIUM 8.9 mg/dL (8.5-10.1); CREATININE 1.3 mg/dL (0.6-1.3); MAGNESIUM 2.4 mg/dL (1.8-2.4); TOTAL BILIRUBIN 1.7 mg/dL (<0.1-1.0)
[2018-07-25 11:59] VITALS: BP 99/60
[2018-07-25] MEDS ORDERED: CARVEDILOL12.5 MG PO (13:15)
[2018-07-25] MEDS ORDERED: LASIX 80 MG TAB80 MG PO (13:21)
[2018-07-25] MEDS ORDERED: MIRALAX17 GM PO (13:26)
[2018-07-25] MEDS ORDERED: ELIQUIS5 MG PO (13:28)
[2018-07-25] MEDS ORDERED: DIGOXIN250 MCG PO (13:29)
[2018-07-25] MEDS ORDERED: LEVALBUTER1.25 MG/0. INH (14:53)
[2018-07-25] MEDS ORDERED: LEVAQUIN 500 M500 M2 PO (14:54)
== END 2018-07-25 17:17 | DRG 177 ==
LOC: M.ERS 13:20 → M.TBA-ER 14:28 → M.ICU 14:28 → M.2W 07-21 21:46
PROVIDERS: Family Medicine; Internal Medicine; Internal Medicine Cardiovascular Disease; Internal Medicine Critical Care Medicine
PROC: 5A09357 Assistance with Respiratory Ventilation, Less than 24 Consecutive Hours, Continuous Positive Airway Pressure (ICD-10-PCS; principal; 2018-07-19)
PROC: 5A09357 Assistance with Respiratory Ventilation, Less than 24 Consecutive Hours, Continuous Positive Airway Pressure (ICD-10-PCS; 2018-07-20)
DX: J15.6 Pneumonia due to other Gram-negative bacteria (principal); J96.01 Acute respiratory failure with hypoxia; I50.33 Acute on chronic diastolic (congestive) heart failure; J96.02 Acute respiratory failure with hypercapnia; J44.1 Chronic obstructive pulmonary disease with (acute) exacerbation; I74.9 Embolism and thrombosis of unspecified artery; J44.0 Chronic obstructive pulmonary disease with (acute) lower respiratory infection; Z68.43 Body mass index [BMI] 50.0-59.9, adult; I11.0 Hypertensive heart disease with heart failure; G47.33 Obstructive sleep apnea (adult) (pediatric); I25.10 Atherosclerotic heart disease of native coronary artery without angina pectoris; E66.01 Morbid (severe) obesity due to excess calories; E03.9 Hypothyroidism, unspecified; Z96.641 Presence of right artificial hip joint; M19.90 Unspecified osteoarthritis, unspecified site; R00.0 Tachycardia, unspecified; E87.70 Fluid overload, unspecified; N28.9 Disorder of kidney and ureter, unspecified; I49.9 Cardiac arrhythmia, unspecified; I48.2 Chronic atrial fibrillation; I95.9 Hypotension, unspecified; Z95.0 Presence of cardiac pacemaker; Z95.5 Presence of coronary angioplasty implant and graft; I25.2 Old myocardial infarction; Z95.1 Presence of aortocoronary bypass graft; Z87.891 Personal history of nicotine dependence; Z79.82 Long term (current) use of aspirin; Z79.899 Other long term (current) drug therapy

== ENCOUNTER 2018-07-25 14:07 | Inpatient (IN) | payer MEDICARE, OTHER ==
[~2018-07-25] VITALS: Ht 172.7 cm; Wt 121.7 kg
[~2018-07-25 14:07] MED LIST changes: +CARVEDILOL12.5 MG PO; +DIGOXIN250 MCG PO; +ELIQUIS5 MG PO; +LASIX 80 MG TAB80 MG PO; +MIRALAX17 GM PO
[2018-07-25] MEDS ORDERED: LEVALBUTER1.25 MG/0. INH (14:53)
[2018-07-25] MEDS ORDERED: LEVAQUIN 500 M500 M2 PO (14:54)
[2018-07-25 17:39] VITALS: BP 104/58
[2018-07-25 20:00] VITALS: BP 106/62
[2018-07-26 04:00] LABS: HEMATOCRIT 45.7 % (42.0-52.0); HEMOGLOBIN 15.4 gm/dL (14.0-18.0); MCH 32.7 pg (26.0-34.0); MCHC 33.8 g/dL (28.0-37.0); MCV 96.7 fL (80.0-100.0); MPV 8.3 fl. (7.2-11.1); RBC 4.72 mil/uL (4.50-6.00); WBC 10.8 thou/uL (4.0-11.0)
[2018-07-26 04:27] LABS: CALCIUM 8.8 mg/dL (8.5-10.1); CREATININE 1.2 mg/dL (0.6-1.3); POTASSIUM 3.7 mmol/L (3.5-5.1)
[2018-07-26 08:00] VITALS: BP 114/73
[2018-07-26 19:50] VITALS: BP 129/53
[2018-07-27 08:17] VITALS: BP 112/56
[2018-07-27 20:00] VITALS: BP 101/58
[2018-07-28 08:09] VITALS: BP 110/62
[2018-07-28 19:55] VITALS: BP 95/54
[2018-07-29 07:33] VITALS: BP 99/56
[2018-07-29 21:00] VITALS: BP 86/58
[2018-07-30 07:36] VITALS: BP 118/71
[2018-07-30 19:30] VITALS: BP 95/56
[2018-07-31 08:00] VITALS: BP 94/52
[2018-07-31 20:00] VITALS: BP 103/55
[2018-08-01 09:43] VITALS: BP 110/50
[2018-08-01 20:00] VITALS: BP 105/57
[2018-08-02 07:54] VITALS: BP 97/49
[2018-08-02 20:14] VITALS: BP 96/54
[2018-08-03 07:35] VITALS: BP 105/63
[2018-08-03 19:52] VITALS: BP 94/54
[2018-08-04 07:47] VITALS: BP 98/64
[2018-08-04 20:00] VITALS: BP 105/64
[2018-08-05 08:00] VITALS: BP 108/58
[2018-08-05 20:00] VITALS: BP 108/66
[2018-08-06 08:00] VITALS: BP 104/62
[2018-08-06 22:05] VITALS: BP 111/69
[2018-08-07 06:00] VITALS: BP 144/98
[2018-08-07 10:54] VITALS: BP 114/67
[2018-08-07 19:37] VITALS: BP 121/71
[2018-08-08 08:15] VITALS: BP 103/54
[2018-08-08 18:30] VITALS: BP 92/49
[2018-08-08 20:10] VITALS: BP 95/55
[2018-08-09 08:30] VITALS: BP 94/56
[2018-08-09 14:55] LABS: CREATININE 1.2 mg/dL (0.6-1.3)
[2018-08-09 19:30] VITALS: BP 93/53
[2018-08-10 07:30] VITALS: BP 99/52
[2018-08-10 16:15] LABS: URINE BILIRUBIN NEGATIVE (Negative); URINE BLOOD NEGATIVE (Negative); URINE CLARITY CLEAR; URINE COLOR YELLOW; URINE GLUCOSE-RANDOM NEGATIVE (Negative); URINE KETONES NEGATIVE (Negative); URINE LEUKOCYTES NEGATIVE (Negative); URINE NITRITE NEGATIVE (Negative); URINE PROTEIN NEGATIVE (Negative); URINE SPECIFIC GRAVITY 1.015 (1.005-1.030)
[2018-08-10 19:29] VITALS: BP 89/46
[2018-08-11 20:00] VITALS: BP 103/57
[2018-08-12 08:00] VITALS: BP 102/64
[2018-08-12 13:15] LABS: ABSOLUTE EOSINOPHILS 0.2 thou/uL (0.0-0.7); ABSOLUTE LYMPHOCYTES 1.2 thou/uL (0.8-5.3); ABSOLUTE MONOCYTES 0.6 thou/uL (0.0-1.2); ABSOLUTE NEUTROPHILS 3.8 thou/uL (1.6-8.1); BASOPHILS 0.6 %; EOSINOPHILS 3.6 %; HEMATOCRIT 39.9 % (42.0-52.0); HEMOGLOBIN 13.5 gm/dL (14.0-18.0); LYMPHOCYTES 20.8 %; MCH 32.3 pg (26.0-34.0); MCHC 33.7 g/dL (28.0-37.0); MCV 95.7 fL (80.0-100.0); MONOCYTES 9.9 %; MPV 8.1 fl. (7.2-11.1); NUCLEATED RBCS 0 /100WBC; PLATELET COUNT* 162 thou/uL (150-400); POLYS 65.1 %; RBC 4.17 mil/uL (4.50-6.00); RDW-CV 15.8 % (10.5-14.5); WBC 5.8 thou/uL (4.0-11.0)
[2018-08-12 13:34] LABS: CALCIUM 8.9 mg/dL (8.5-10.1); CREATININE 1.2 mg/dL (0.6-1.3); POTASSIUM 3.9 mmol/L (3.5-5.1); TOTAL BILIRUBIN 0.7 mg/dL (<0.1-1.0)
[2018-08-12 19:45] VITALS: BP 97/58
[2018-08-13 09:20] VITALS: BP 97/57
--- NOTE | 2018-08-13 13:09 | CON ---
[address] [address] CONSULTATION Name: NEEL CLANCY Room: [address] IN M.R.#: [id number] Admission: 07/25/18 Attend Phys: Jj Auguste MD Discharge: Date of : 34 Report #: [id number] THIS REPORT FOR: //name// CC: Richie Auguste DATE OF SERVICE: 08/11/2018 REASON FOR EVALUATION: Respiratory distress and wheezing. HISTORY OF PRESENT ILLNESS: The patient is a pleasant 82-year-old gentleman who has past medical history of coronary artery disease, decubitus ulcers, generalized weakness. He was earlier admitted with generalized weakness, has been through rehab. Reviewed his chart, has a history of atrial fibrillation with RVR during this admission, pacemaker in place and coronary artery disease, known to have obstructive sleep apnea, chronic hypercapnic respiratory failure. He was admitted in May at that time for his shortness of breath, had a CT angiogram to evaluate for pulmonary embolism. At that time, he did not show any pulmonary embolism or significant interstitial lung disease or infiltrate. He had lung V/Q scan, which was also low probability and normal lower extremity Dopplers. He has severe weakness, generalized deconditioning. Had shortness of breath with exertion today, has some wheezing and has improved with inhalers. Denies any cough, hemoptysis, or mucus production. On his examination, have bilateral crackles. Has history of congestive heart failure as above and has worse lower extremity swelling. PAST MEDICAL HISTORY: As above, significant for osteoarthritis, coronary artery disease, hypothyroidism, congestive heart failure with normal ejection fraction, morbid obesity, myocardial infarction in 2009 and lumbar spinal stenosis, pacemaker. FAMILY HISTORY: Obesity. SOCIAL HISTORY: Smoked only when he was 19, tried cigar, but did not like it. No history of alcohol abuse. REVIEW OF SYSTEMS: A 12-point review of system, lower joint pain, has generalized weakness, on rehab. Wheezing, has congestive heart failure, lower extremity swelling. Otherwise, 14-point review of systems as above and as in the chart. PHYSICAL EXAMINATION: GENERAL: The patient is pleasant, [place] [address] CONSULTATION Name: NEEL CLANCY Celso Room: [address]#: [id number] Admission: 07/25/18 Attend Phys: Jj Auguste MD Discharge: Date of : 34 Report #: [id number] VITAL SIGNS: Stable. He is on 2 liters, his oxygen saturation was adequate at 95%, pulse is 60. He is afebrile. Blood pressure 104/59. HEAD AND NECK: Supple. Oral mucosa is clear. CHEST: Has bibasilar crackles to the midline. CARDIOVASCULAR: Regular rhythm. ABDOMEN: Soft, nontender. EXTREMITIES: He has +3 edema. LABORATORY DATA AND OTHER DATABASE: Arterial blood gas as above. No recent blood gas; however, his arterial blood gas, which was done 07/24/2018, pH 7.47, pCO2 of 45.7, pO2 of 89. ASSESSMENT AND PLAN: 1. History of shortness of breath, wheezing, cough. He has increased basilar crackles. Suspect decompensated congestive heart failure with preserved ejection fraction. At this time, we will obtain chest x-ray. Recommend gentle diuresis. 2. Wheezing, suspect bronchospasm, likely related to pulmonary edema. Other differential diagnosis include reactive airway disease. 3. Chronic hypercapnic respiratory failure. It is noted that his hypercapnia is mild. His pCO2 is 45.6. Suspect his hypercapnia is related to obesity hypoventilation associated obstructive sleep apnea. 4. Obstructive sleep apnea, which is severe. His sleep study from May showed apnea-hypopnea index of 32. Continue to use CPAP. PLAN: 1. We will obtain chest x-ray and will follow up. 2. Diuresis. 3. Agree with bronchodilator. We will need PFT as outpatient. We will continue to follow. <ELECTRONICALLY SIGNED> By: Karol Samaniego MD 08/13/18 1309 1405 [id number] Samaniego MD /nt
[2018-08-13 19:50] VITALS: BP 84/65
[2018-08-14 07:53] VITALS: BP 102/60
[2018-08-14 20:22] VITALS: BP 102/55
[2018-08-15 07:00] VITALS: BP 100/55
[2018-08-15 19:20] VITALS: BP 97/54
[2018-08-16 08:05] VITALS: BP 97/53
[2018-08-16 09:45] VITALS: BP 91/49
[2018-08-16 20:30] VITALS: BP 104/65
[2018-08-17 04:46] LABS: CALCIUM 8.9 mg/dL (8.5-10.1); CREATININE 1.2 mg/dL (0.6-1.3); MAGNESIUM 2.3 mg/dL (1.8-2.4); POTASSIUM 4.1 mmol/L (3.5-5.1)
[2018-08-17 07:45] VITALS: BP 104/60
[2018-08-17 19:39] VITALS: BP 104/59
[2018-08-18 05:20] LABS: HEMATOCRIT 38.2 % (42.0-52.0); HEMOGLOBIN 12.6 gm/dL (14.0-18.0); MCH 31.8 pg (26.0-34.0); MCHC 33.1 g/dL (28.0-37.0); MCV 96.1 fL (80.0-100.0); MPV 8.5 fl. (7.2-11.1); RBC 3.97 mil/uL (4.50-6.00); RDW-CV 15.6 % (10.5-14.5); WBC 6.7 thou/uL (4.0-11.0)
[2018-08-18 05:44] LABS: MAGNESIUM 2.4 mg/dL (1.8-2.4); POTASSIUM 4.3 mmol/L (3.5-5.1)
[2018-08-18 08:07] VITALS: BP 104/58
[2018-08-18 19:54] VITALS: BP 114/66
[2018-08-19 08:00] VITALS: BP 109/63
[2018-08-19] MEDS ORDERED: [UNRECOGNIZED DRUG - OTHER] PO (16:10)
[2018-08-19] MEDS ORDERED: AMOXICILLIN PO (16:10)
[2018-08-19 19:00] VITALS: BP 98/53
[2018-08-20 08:02] VITALS: BP 114/64
[2018-08-20 20:05] VITALS: BP 108/62
[2018-08-21 00:22] VITALS: BP 114/64
[2018-08-21 07:07] VITALS: BP 114/64
[2018-08-21 08:30] VITALS: BP 99/51
[2018-08-21] MEDS ORDERED: LASIX 80 MG TAB80 MG PO (10:17)
[2018-08-21] MEDS ORDERED: AUGMENTIN 875-1 EACH PO (10:17)
[2018-08-21 14:10] VITALS: BP 114/64
== END 2018-08-21 13:27 | disposition home health service (06) | DRG 189 ==
LOC: M.REH 14:07
PROVIDERS: Family Medicine; Internal Medicine; ADMIT Physical Medicine & Rehabilitation
DX: J96.22 Acute and chronic respiratory failure with hypercapnia (principal); I50.33 Acute on chronic diastolic (congestive) heart failure; J18.9 Pneumonia, unspecified organism; E87.2 Acidosis; E44.0 Moderate protein-calorie malnutrition; Z68.41 Body mass index [BMI] 40.0-44.9, adult; J96.21 Acute and chronic respiratory failure with hypoxia; I48.91 Unspecified atrial fibrillation; M48.061 Spinal stenosis, lumbar region without neurogenic claudication; I25.10 Atherosclerotic heart disease of native coronary artery without angina pectoris; G47.33 Obstructive sleep apnea (adult) (pediatric); E66.01 Morbid (severe) obesity due to excess calories; R79.89 Other specified abnormal findings of blood chemistry; E03.9 Hypothyroidism, unspecified; M19.90 Unspecified osteoarthritis, unspecified site; R53.81 Other malaise; I95.9 Hypotension, unspecified; Z96.641 Presence of right artificial hip joint; I25.2 Old myocardial infarction; Z95.0 Presence of cardiac pacemaker; Z95.1 Presence of aortocoronary bypass graft

== ENCOUNTER → 2018-08-26 | Outpatient (CLI) | payer MEDICARE, OTHER ==
[~2018-08-26] MED LIST changes: +AMOXICILLIN PO; +ASPIR 8181 MG PO; +AUGMENTIN 875-1 EACH PO; +CARDIZEM CD120 MG PO; +LEVALBUTER1.25 MG/0. INH; +LEVAQUIN 500 M500 M2 PO; +MIDODRINE HCL 55 M1 PO; +[UNRECOGNIZED DRUG - OTHER] PO
[2018-08-26 12:56] LABS: CALCIUM 9.1 mg/dL (8.5-10.1)
== END ==
LOC: M.LAB 12:18
PROVIDERS: Registered Nurse
DX: I11.0 Hypertensive heart disease with heart failure (principal); I50.32 Chronic diastolic (congestive) heart failure; I48.0 Paroxysmal atrial fibrillation; G47.33 Obstructive sleep apnea (adult) (pediatric); M19.90 Unspecified osteoarthritis, unspecified site; E66.01 Morbid (severe) obesity due to excess calories; E03.9 Hypothyroidism, unspecified

== ENCOUNTER 2018-08-28 12:41 | Observation (INO) | payer MEDICARE, OTHER ==
[~2018-08-28] VITALS: Ht 172.7 cm; Wt 121.7 kg
--- NOTE | ~2018-08-28 | CON ---
[address] [address] CONSULTATION Name: NEEL CLANCY Room: [address] IN M.R.#: [id number] Admission: 08/28/18 Attend Phys: Abhishek Carlton MD Discharge: Date of : 34 Report #: [id number] THIS REPORT FOR: //name// CC: Abhishek Prado DATE OF SERVICE: 08/28/2018 PRIMARY PHYSICIAN: Dr. Cisneros. CHIEF COMPLAINT: Palpitations, dizziness, weakness. HISTORY OF PRESENT ILLNESS: The patient is an 82-year-old man with a history of symptomatic second degree AV block and atrial fibrillation, which is paroxysmal, woke up this morning, had been feeling relatively fine, took a hot shower and then suddenly had onset of heart racing, skipping, weakness and fatigue and was noted to be in a wide complex tachycardia upon presentation to the Emergency Room with heart rates in the 120s to 140s. Blood pressures remained stable. He had a little bit of chest pressure during the episode. He was not been feeling ill and he has been compliant with his medications recently. He had hospitalization for PAF and required aggressive medical therapy. Most recently, he has been titrated on his flecainide to a higher dose. PAST MEDICAL HISTORY: As noted above, a Biotronik dual-chamber pacemaker, atrial fibrillation with rapid ventricular response, remote history of coronary artery disease, chronic diastolic heart failure, sleep apnea, hypercapnia, morbid obesity, mild kidney impairment. MEDICATION: He is on Eliquis. ALLERGIES: No known drug allergies. SOCIAL HISTORY: He is . He is not smoking, rarely drinks. REVIEW OF SYSTEMS: GENERAL: No fevers or chills. PULMONARY: No wheezing or cough. CARDIOVASCULAR: Positive chest pain, positive palpitations, positive dyspnea. SKIN: No rashes. GENITOURINARY: No dysuria or hematuria. ENDOCRINE: No history of diabetes. PHYSICAL EXAMINATION: VITAL SIGNS: Blood pressure is 114/78, pulse 130, O2 sats 93% on 2 liters. GENERAL: This is an obese elderly male. He is alert, in no apparent distress. HEENT: Eyes: EOMs intact[place] [address] CONSULTATION Name: NEEL CLANCY Celso Room: [address]#: [id number] Admission: 08/28/18 Attend Phys: Abhishek Carlton MD Discharge: Date of : 34 Report #: [id number] NECK: Supple. No jugular venous distention. CARDIOVASCULAR: Irregular, tachycardic. There is no murmur. LUNGS: Diminished breath sounds. ABDOMEN: Soft, nontender, nondistended. EXTREMITIES: No peripheral edema. Chest x-ray is pending. LABORATORY DATA: Hemoglobin is 11.9, white blood count is 9.2, platelet count is 144,000. Sodium is 141, potassium is 4.0, chloride is 104, CO2 is 29, BUN is 23, creatinine is 1.1. Troponin I is 0.06. BNP is 2207. INR is 1.1. IMPRESSION: 1. Atrial fibrillation with rapid ventricular response. 2. Second degree AV block. 3. Permanent pacemaker. 4. Coronary artery disease. 5. History of diastolic heart failure. His symptoms and presentation are that of atrial fibrillation. This could theoretically also be a pacemaker related tachycardia syndrome. We will have his device interrogated. However, it appears he has failed in his flecainide therapy and we will plan on treating him with IV Cardizem and if he converts, transition him to sotalol with loading and continue with anticoagulation based on his high stroke risk. By: [id number] [id number] Chavez MD, FACC /nt
[~2018-08-28 12:41] MED LIST changes: -ASPIR 8181 MG PO; -CARDIZEM CD120 MG PO; -MIDODRINE HCL 55 M1 PO
[2018-08-28 12:44] VITALS: BP 114/74
[2018-08-28] MEDS ORDERED: LISINOPRIL5 MG PO (12:55)
[2018-08-28] MEDS ORDERED: ASPIR 8181 MG PO (12:55)
[2018-08-28 13:14] LABS: ABSOLUTE EOSINOPHILS 0.1 thou/uL (0.0-0.7); ABSOLUTE LYMPHOCYTES 1.4 thou/uL (0.8-5.3); ABSOLUTE MONOCYTES 0.7 thou/uL (0.0-1.2); BASOPHILS 0.5 %; EOSINOPHILS 1.4 %; HEMATOCRIT 35.3 % (42.0-52.0); HEMOGLOBIN 11.9 gm/dL (14.0-18.0); LYMPHOCYTES 14.8 %; MCHC 33.9 g/dL (28.0-37.0); MCV 97.5 fL (80.0-100.0); MONOCYTES 7.5 %; MPV 8.4 fl. (7.2-11.1); NUCLEATED RBCS 0 /100WBC; PLATELET COUNT* 144 thou/uL (150-400); POLYS 75.8 %; RBC 3.62 mil/uL (4.50-6.00); RDW-CV 17.1 % (10.5-14.5); WBC 9.2 thou/uL (4.0-11.0)
[2018-08-28] MEDS ORDERED: MIDODRINE HCL 55 M1 PO (13:14)
[2018-08-28 13:23] LABS: ANION GAP 8 mmol/L (7-16); BUN 23 mg/dL (7-18); CALCIUM 8.8 mg/dL (8.5-10.1); CHLORIDE 104 mmol/L (98-107); CO2 29 mmol/L (21-32); CREATININE 1.1 mg/dL (0.6-1.3); GLUCOSE 149 mg/dL (70-99); INR 1.1; PROTIME 11.6 Seconds (9.20-11.50); SODIUM 141 mmol/L (136-145)
[2018-08-28 13:34] LABS: ALBUMIN 3.2 g/dL (3.4-5.0); ALKALINE PHOSPHATASE 70 U/L (46-116); LIPASE 154 U/L (73-393); MAGNESIUM 2.2 mg/dL (1.8-2.4); NT-PRO BRAIN NAT PEPTIDE 2207 pg/mL (<300); SGOT 21 U/L (15-37); SGPT 29 U/L (30-65); TOTAL BILIRUBIN 0.8 mg/dL (<0.1-1.0); TOTAL PROTEIN 6.2 g/dL (6.4-8.2); TROPONIN-I LEVEL <0.06 ng/mL (<0.06)
--- NOTE | 2018-08-28 13:59 | NUR ---
B/P DROP CARDIZEM STOPPED NOTIFIED. BIOTRONIC STAFF AT BEDSIDE INTERRIGATING PACEMAKER
--- NOTE | 2018-08-28 15:51 | NUR ---
RT CALLED FOR TREATMENT
[2018-08-28 17:54] VITALS: BP 101/59
[2018-08-28 18:30] VITALS: BP 94/52
[2018-08-28 20:00] VITALS: BP 102/54
[2018-08-29] VITALS: BP 99/60
[2018-08-29 03:55] LABS: ABSOLUTE BASOPHILS 0.1 thou/uL (0.0-0.2); ABSOLUTE EOSINOPHILS 0.2 thou/uL (0.0-0.7); ABSOLUTE LYMPHOCYTES 1.9 thou/uL (0.8-5.3); ABSOLUTE MONOCYTES 0.8 thou/uL (0.0-1.2); ABSOLUTE NEUTROPHILS 6.6 thou/uL (1.6-8.1); BASOPHILS 0.6 %; EOSINOPHILS 1.9 %; HEMATOCRIT 33.7 % (42.0-52.0); HEMOGLOBIN 11.4 gm/dL (14.0-18.0); LYMPHOCYTES 19.8 %; MCHC 33.9 g/dL (28.0-37.0); MCV 97.4 fL (80.0-100.0); MONOCYTES 8.8 %; MPV 8.8 fl. (7.2-11.1); NUCLEATED RBCS 0 /100WBC; PLATELET COUNT* 149 thou/uL (150-400); POLYS 68.9 %; RBC 3.46 mil/uL (4.50-6.00); WBC 9.6 thou/uL (4.0-11.0)
[2018-08-29 04:00] VITALS: BP 107/63
[2018-08-29 04:22] LABS: CALCIUM 8.8 mg/dL (8.5-10.1); CREATININE 0.9 mg/dL (0.6-1.3)
--- NOTE | 2018-08-29 05:48 | NUR ---
VITALS WNL. SEE MAR. SEE CHARTING. FALL PRECAUTIONS IN PLACE. HOURLY ROUNDING FOR SAFETY.
[2018-08-29 08:24] VITALS: BP 126/78
--- NOTE | 2018-08-29 11:42 | NUR ---
ATTEMPTED TO MEET WITH PT, BOTH HE AND ASLEEP IN ROOM. DISCUSSED WITH DR AND NURSE. PT KNOWN TO CM, JUST DC'D FROM [facility] RE[facility]AB [facility] WITH [facility]. PT LIVES WITH . HAS WALKER. WILL SEE LATER
[2018-08-29 13:00] VITALS: BP 93/55
[2018-08-29 13:43] VITALS: BP 93/55
[2018-08-29] MEDS ORDERED: CARDIZEM CD120 MG PO (15:08)
--- NOTE | 2018-08-29 15:35 | NUR ---
PT TO D/C TO HOME AT THIS TIME. IV REMOVED INTACT. VSS, PT PROVIDED WITH 1 RX AT TIME OF DISCHARGE. PT HOME HEALTH RESUMED AND PT TRANSFERRED TO OBSERVATION STATUS. PT V-PACED ON THE MONITOR THIS SHIFT. PT HAS NO C/O PAIN THIS SHIFT. PT AND VERBALIZED UNDERSTANDING TO DISCHARGE EDUCATION AND FOLLOW UP APPOINTMENTS. HOURLY ROUNDING MAINTAINED THIS SHIFT.
[2018-08-29 16:04] VITALS: BP 93/55
--- NOTE | 2018-08-29 16:34 | EKG ---
[place] [address] ELECTROCARDIOGRAM REPORT Name: NEEL CLANCY Room: [address] M.R.#: [id number] Admission: 08/28/18 Attend Phys: Abhishek Carlton MD Discharge: Date of : 34 Report #: [id number] THIS REPORT FOR: //name// [facility] ED Test Date: 2018-08-28 Test Time: 12:45:49 Pat Name: NEEL CLANCY Department: Room: [facility] Gender: Crossbar Frame Wirer: Christina GREENWOOD : 1935 Requested By: Vaibhav Cisneros Order Number: [id number] MD: Matthew Chavez Measurements Intervals [place] Rate: 122 P: SD: 80 QRS: -43 QRSD: 215 T: 148 QT: 409 QTc: 583 Interpretive Statements Ventricular-paced complexes No further rhythm analysis attempted due to paced rhythm Nonspecific IVCD with LAD LVH with secondary repolarization abnormality Compared to ECG 07/21/2018 07:57:16 Intraventricular conduction delay now present Left ventricular hypertrophy now present Early repolarization now present Electronically Signed On 08-29-2018 16:33:56 CDT by Matthew Chavez [email or web address] <ELECTRONICALLY SIGNED> By: Matthew Chavez MD, FACC 08/29/18 1633 1245 1245 Matthew Chavez MD, LOCATED WITHIN [facility] /EPI
--- NOTE | 2018-08-29 17:15 | NUR ---
PT. DISCHARGED TO HOME WITH HOME HEALTH PRIOR TO O.T. EVAL. O.T. ATTEMPTED EARLIER THIS MORNING BUT PT. WAS TOO SOB TO PARTICIPATE.
== END 2018-08-29 16:45 | disposition home or self-care (01) ==
LOC: M.ERS 12:41 → M.2W 13:28 → M.TBA-ER 13:28 → M.2W 13:28
PROVIDERS: Emergency Medicine Emergency Medical Services; ADMIT Internal Medicine
DX: R00.0 Tachycardia, unspecified (principal); J96.10 Chronic respiratory failure, unspecified whether with hypoxia or hypercapnia; I42.9 Cardiomyopathy, unspecified; M19.90 Unspecified osteoarthritis, unspecified site; E66.01 Morbid (severe) obesity due to excess calories; I25.10 Atherosclerotic heart disease of native coronary artery without angina pectoris; I48.91 Unspecified atrial fibrillation; G47.33 Obstructive sleep apnea (adult) (pediatric); I11.0 Hypertensive heart disease with heart failure; I50.9 Heart failure, unspecified; E03.9 Hypothyroidism, unspecified; I25.2 Old myocardial infarction; Z95.0 Presence of cardiac pacemaker; Z79.899 Other long term (current) drug therapy; Z96.641 Presence of right artificial hip joint; Z79.82 Long term (current) use of aspirin; Z87.891 Personal history of nicotine dependence

== ENCOUNTER 2018-11-17 11:30 | Inpatient (IN) | payer MEDICARE, OTHER ==
[~2018-11-17] VITALS: Ht 172.7 cm; Wt 123.5 kg
[~2018-11-17 11:30] MED LIST changes: +ASPIR 8181 MG PO; +CARDIZEM CD120 MG PO; +MIDODRINE HCL 55 M1 PO
[2018-11-17 11:34] VITALS: BP 115/63
[2018-11-17 12:25] LABS: ABSOLUTE EOSINOPHILS 0.2 thou/uL (0.0-0.7); ABSOLUTE LYMPHOCYTES 1.5 thou/uL (0.8-5.3); ABSOLUTE MONOCYTES 0.5 thou/uL (0.0-1.2); ABSOLUTE NEUTROPHILS 5.8 thou/uL (1.6-8.1); BASOPHILS 0.5 %; EOSINOPHILS 2.4 %; HEMATOCRIT 40.8 % (42.0-52.0); HEMOGLOBIN 13.5 gm/dL (14.0-18.0); LYMPHOCYTES 18.8 %; MCH 31.5 pg (26.0-34.0); MCV 95.4 fL (80.0-100.0); MONOCYTES 6.1 %; MPV 8.5 fl. (7.2-11.1); NUCLEATED RBCS 0 /100WBC; PLATELET COUNT* 140 thou/uL (150-400); POLYS 72.2 %; RBC 4.28 mil/uL (4.50-6.00); RDW-CV 15.4 % (10.5-14.5); WBC 8.1 thou/uL (4.0-11.0)
[2018-11-17 12:27] LABS: BE 0.4 mmol/L (-2 to +3); PCO2 31.2 mmHg (35.0-45.0); PO2 92.7 mmHg (75.0-100.0); pH 7.484 (7.340-7.450)
[2018-11-17 12:29] LABS: ANION GAP 9 mmol/L (7-16); BUN 23 mg/dL (7-18); CALCIUM 8.7 mg/dL (8.5-10.1); CHLORIDE 103 mmol/L (98-107); CO2 28 mmol/L (21-32); CREATININE 1.2 mg/dL (0.6-1.3); GLUCOSE 194 mg/dL (70-99); POTASSIUM 3.8 mmol/L (3.5-5.1); SODIUM 140 mmol/L (136-145)
[2018-11-17 12:39] LABS: ALBUMIN 3.3 g/dL (3.4-5.0); ALKALINE PHOSPHATASE 78 U/L (46-116); SGOT 21 U/L (15-37); SGPT 29 U/L (30-65); TOTAL BILIRUBIN 1.2 mg/dL (<0.1-1.0); TOTAL PROTEIN 6.2 g/dL (6.4-8.2); TROPONIN-I LEVEL <0.06 ng/mL (<0.06)
[2018-11-17 13:28] LABS: INR 1.2; PROTIME 12.7 Seconds (9.20-11.50)
[2018-11-17 13:55] LABS: URINE BILIRUBIN NEGATIVE (Negative); URINE BLOOD NEGATIVE (Negative); URINE CLARITY CLEAR; URINE COLOR YELLOW; URINE GLUCOSE-RANDOM NEGATIVE (Negative); URINE KETONES NEGATIVE (Negative); URINE LEUKOCYTES-REFLEX NEGATIVE (Negative); URINE NITRITE-REFLEX NEGATIVE (Negative); URINE PROTEIN NEGATIVE (Negative)
--- NOTE | 2018-11-17 16:22 | NUR ---
HEART HEALTHY DIET DINNER TRAY ORDERED FOR PATIENT AT THIS TIME.
[2018-11-17 16:50] VITALS: BP 94/66
[2018-11-17 16:54] VITALS: BP 107/70
--- NOTE | 2018-11-17 17:07 | EKG ---
[place] [address] ELECTROCARDIOGRAM REPORT Name: NEEL CLANCY Room: [address] ADM IN .R.#: [id number] Admission: 11/17/18 Attend Phys: Tawana Monterroso MD Discharge: Date of : 34 Report #: [id number] THIS REPORT FOR: //name// [facility] ED Test Date: 2018-11-17 Test Time: 11:45:09 Pat Name: SHAIKH CLANCY Department: Room: [facility] Gender: M Fine Grader: : 1935 Requested By: Lidia Cardenas Order Number: [id number] MD: Doron Davies Measurements Intervals [place] Rate: 70 P: -39 ID: [id number] QRS: -41 QRSD: 215 T: 110 QT: 525 QTc: 567 Interpretive Statements Atrial-sensed ventricular-paced rhythm No further analysis attempted due to paced rhythm Compared to ECG 08/28/2018 12:45:49 Intraventricular conduction delay no longer present Left ventricular hypertrophy no longer present Early repolarization no longer present Electronically Signed On 11-17-2018 17:07:27 CDT by Doron Davies [email or web address] <ELECTRONICALLY SIGNED> By: Doron Davies MD, FACC 11/17/18 1707 1145 1145 Doron Davies MD, FAC /EPI
[2018-11-17] MEDS ORDERED: COLACE100 MG PO (17:13)
--- NOTE | 2018-11-17 17:57 | NUR ---
PT ADMITTED TO TELEMETRY ROOM 201 WITH AN ADMITTING DIAGNOSIS OF LACTIC ACIDOSIS WITH DYSPNES. VSS. V PACED ON MONITOR. PT UP AD [place]O, STEADY GAIT. PT JUDITH PAIN. PT DENIES ANY FURTHER NEEDS AT THIS TIME. HOURLY ROUNDING IN PLACE FOR PT SAFETY. CLWR.
[2018-11-17 19:35] VITALS: BP 116/80
[2018-11-18] VITALS: BP 117/70
--- NOTE | 2018-11-18 03:35 | NUR ---
ASSUMED CARE OF PT AT 1900. PT IS ALERT AND ORIENTED. VSS. PERRLA. NO COMPLAINTS OF PAIN. EDEMA IN LOWER EXTREMITIES. PT IS VPACED ON THE TELEMETRY. PT IS RESTING COMFORTABLY IN BED. RESPIRATIONS ARE EVEN AND NONLABORED. WILL CONTINUE TO MONITOR PT.
[2018-11-18 03:55] VITALS: BP 103/69
[2018-11-18 04:38] LABS: HEMATOCRIT 40.6 % (42.0-52.0); HEMOGLOBIN 13.5 gm/dL (14.0-18.0); MCH 31.8 pg (26.0-34.0); MCHC 33.2 g/dL (28.0-37.0); MCV 95.6 fL (80.0-100.0); MPV 8.8 fl. (7.2-11.1); RBC 4.25 mil/uL (4.50-6.00); RDW-CV 15.3 % (10.5-14.5); WBC 7.8 thou/uL (4.0-11.0)
[2018-11-18 04:53] LABS: CALCIUM 8.9 mg/dL (8.5-10.1); CREATININE 1.4 mg/dL (0.6-1.3); MAGNESIUM 2.2 mg/dL (1.8-2.4); POTASSIUM 4.5 mmol/L (3.5-5.1)
[2018-11-18 07:10] VITALS: BP 100/50; BP 139/75
--- NOTE | 2018-11-18 10:56 | NUR ---
INITAL ASSESSMENT COMPLETED CHARTED. VSS. PT TRACING V PACED. PT DENIES PAIN. PT CONTINUES TO C/O SOA, ALTHOUGH LUNGS CLEAR WITH ADEQUATE O2 SATS. PT INSTRUCTED NOT TO LIE FLAT, VERBALIZES UNDERSTANDNING. MEDICATIONS GIVEN PER EMAR. PT DENIES ANY FURTHER NEEDS. HOURLY ROUNDING IN PLACE FOR PT SAFETY. CLWR.
--- NOTE | 2018-11-18 11:26 | NUR ---
Pt is A&O. Resides at home with , in room at bedside. Pt is independent. Pt has a RW that he uses for mobility. Pt has a cpap through [facility]. Hx of acute rehab. No hx of SNF. Hx of [facility]. Pt is current with [facility] outpt therapy and plans to resume at [place], p:[phone] f:[phone]. Goal is home at [place]. Following.
[2018-11-18 12:13] VITALS: BP 90/49
[2018-11-18 15:39] VITALS: BP 91/50
[2018-11-18 20:00] VITALS: BP 107/61
[2018-11-19] VITALS: BP 112/76
[2018-11-19 02:10] LABS: GLYCOHEMOGLOBIN (HGB A1C) 6.2 % (4.8-5.6)
[2018-11-19 04:00] VITALS: BP 115/72
--- NOTE | 2018-11-19 04:40 | NUR ---
ASSUMED CARE OF PT AFTER REPORT AT 1930. PT A&OX4. FORGETFUL. VSS. PHYSICAL ASSESSMENT COMPLETED AND CHARTED. PT ON O2 AT 2L NC/ CPAP WHEN SLEEPING. PT TRACING VPACED ON TELE. PT UPADLIB TO RESTROOM. PT DENIES ANY PAIN OR DISCOMFORT. PT ABLE TO SLEEP WELL ON BED. CALL LIGHT WITHIN REACH.
[2018-11-19 05:15] LABS: HEMATOCRIT 41.6 % (42.0-52.0); HEMOGLOBIN 13.7 gm/dL (14.0-18.0); MCH 31.6 pg (26.0-34.0); MCHC 32.8 g/dL (28.0-37.0); MCV 96.2 fL (80.0-100.0); MPV 9.3 fl. (7.2-11.1); RBC 4.33 mil/uL (4.50-6.00); RDW-CV 15.5 % (10.5-14.5); WBC 17.4 thou/uL (4.0-11.0)
[2018-11-19 05:40] LABS: CALCIUM 9.1 mg/dL (8.5-10.1); CREATININE 1.4 mg/dL (0.6-1.3); MAGNESIUM 2.6 mg/dL (1.8-2.4); POTASSIUM 4.7 mmol/L (3.5-5.1)
[2018-11-19 07:00] VITALS: BP 117/71
--- NOTE | 2018-11-19 10:52 | NUR ---
INITAL ASSESSMENT COMPLETED CHARTED. PT CURRENTLY ON ROOM AIR WITH O2 SAT AT 94%. VSS. V PACED ON MONITOR. PT DENIED PAIN INITIALLY AND IS NOW C/O SLIGHT HEADACHE. PRN TYLENOL GIVEN. HOURLY PRECAUTIONS IN PLACE. CLWR.
--- NOTE | 2018-11-19 11:22 | NUR ---
Pt discharging to home today, CM provided Pt with a list of outpt therapy clinics. CM informed nurse that Pt can see a dumpster driver at [facility], nurse to update Pt.
[2018-11-19 12:00] VITALS: BP 108/62
--- NOTE | 2018-11-19 12:19 | NUR ---
Spoke with , anticipate dc tomorrow. Resume outpt therapy at or.
--- NOTE | 2018-11-19 13:55 | NUR ---
RE: CHF medication education. Spoke with the pt regarding heart failure medication. The discussion focused primarily on furosemide and spironolactone. Discussed rationale for therapy and importance of compliance with physician prescribed regimen. Reviewed possible side effects and potential management strategies. Left medication information sheet and pharmacy contact information for any further questions. Thank you.
[2018-11-19 16:00] VITALS: BP 109/60
[2018-11-19 20:00] VITALS: BP 101/68
[2018-11-20] VITALS: BP 117/72
[2018-11-20 04:00] VITALS: BP 120/73
--- NOTE | 2018-11-20 05:03 | NUR ---
ASSUMED CARE OF PT AFTER REPORT AT 1930. PT A&OX4. VSS. PHYSICAL ASSESSMENT COMPLETED AND CHARTED. PT ON RA. PT TRACING VPACED ON TELE. PT UPADLIB TO RESTROOM. PT DENIES ANY PAIN OR DISCOMFORT. PT STILL WITH EDEMA ON BLE- REMINDED TO ELEVATE LEGS. PT ABLE TO SLEEP WELL ON BED. CALL LIGHT WITHIN REACH.
[2018-11-20 08:00] VITALS: BP 125/61
[2018-11-20 08:27] VITALS: BP 125/61
[2018-11-20] MEDS ORDERED: PREDNISONE 10 M10 MG PO (12:01)
[2018-11-20] MEDS ORDERED: LEVAQUIN 500 M500 M2 PO (12:01)
[2018-11-20] MEDS ORDERED: SPIRONOLACTONE25 MG PO (12:01)
--- NOTE | 2018-11-20 14:31 | NUR ---
DISCHARGE NOTE - IV REMOVED WITHOUT DIFFICULTY. ALL BELONGINGS SENT WITH PT. RT PERFORMED REST/EXERCISE O2. NO NEED FOR HOME O2. REVIEWED INSTRUCTIONS WITH PT/SPOUSE. NO QUESTIONS.
== END 2018-11-20 14:35 | disposition home or self-care (01) | DRG 177 ==
LOC: M.ERS 11:30 → M.TBA-ER 13:43 → M.2W 13:43
PROVIDERS: Personal Emergency Response Attendant; ADMIT Internal Medicine
DX: J15.6 Pneumonia due to other Gram-negative bacteria (principal); J96.01 Acute respiratory failure with hypoxia; I50.33 Acute on chronic diastolic (congestive) heart failure; J44.1 Chronic obstructive pulmonary disease with (acute) exacerbation; E87.2 Acidosis; Z68.41 Body mass index [BMI] 40.0-44.9, adult; I13.0 Hypertensive heart and chronic kidney disease with heart failure and stage 1 through stage 4 chronic kidney disease, or unspecified chronic kidney disease; G47.33 Obstructive sleep apnea (adult) (pediatric); M19.90 Unspecified osteoarthritis, unspecified site; I48.91 Unspecified atrial fibrillation; E66.01 Morbid (severe) obesity due to excess calories; E03.9 Hypothyroidism, unspecified; I25.10 Atherosclerotic heart disease of native coronary artery without angina pectoris; Z96.641 Presence of right artificial hip joint; N18.9 Chronic kidney disease, unspecified; G89.29 Other chronic pain; M54.9 Dorsalgia, unspecified; I25.2 Old myocardial infarction; Z95.5 Presence of coronary angioplasty implant and graft; Z87.891 Personal history of nicotine dependence; Z95.0 Presence of cardiac pacemaker; Z79.82 Long term (current) use of aspirin; Z79.899 Other long term (current) drug therapy

== ENCOUNTER 2018-12-27 09:05 | Inpatient (IN) | payer MEDICARE, OTHER ==
[2018-12-26 20:00] VITALS: BP 124/65
[~2018-12-27] VITALS: Ht 172.7 cm; Wt 119.7 kg
[~2018-12-27 09:05] MED LIST changes: +COLACE100 MG PO; +PREDNISONE 10 M10 MG PO; +SPIRONOLACTONE25 MG PO
[2018-12-27 09:09] VITALS: BP 124/70
[2018-12-27 09:47] LABS: ABSOLUTE BASOPHILS 0.1 thou/uL (0.0-0.2); ABSOLUTE EOSINOPHILS 0.1 thou/uL (0.0-0.7); ABSOLUTE LYMPHOCYTES 1.7 thou/uL (0.8-5.3); ABSOLUTE MONOCYTES 0.5 thou/uL (0.0-1.2); ABSOLUTE NEUTROPHILS 5.2 thou/uL (1.6-8.1); BASOPHILS 0.8 %; EOSINOPHILS 1.5 %; HEMATOCRIT 42.2 % (42.0-52.0); HEMOGLOBIN 13.9 gm/dL (14.0-18.0); LYMPHOCYTES 21.8 %; MCH 31.5 pg (26.0-34.0); MCHC 32.9 g/dL (28.0-37.0); MONOCYTES 7.2 %; MPV 8.5 fl. (7.2-11.1); NUCLEATED RBCS 0 /100WBC; PLATELET COUNT* 142 thou/uL (150-400); POLYS 68.7 %; RDW-CV 17.1 % (10.5-14.5); WBC 7.6 thou/uL (4.0-11.0)
[2018-12-27 09:58] LABS: ANION GAP 8 mmol/L (7-16); BUN 26 mg/dL (7-18); CALCIUM 9.5 mg/dL (8.5-10.1); CHLORIDE 102 mmol/L (98-107); CO2 29 mmol/L (21-32); CREATININE 1.4 mg/dL (0.6-1.3); GLUCOSE 131 mg/dL (70-99); SODIUM 139 mmol/L (136-145)
[2018-12-27 10:01] LABS: APTT 30.3 Seconds (25.0-31.3); INR 1.2; PROTIME 12.7 Seconds (9.20-11.50)
[2018-12-27 10:08] LABS: ALBUMIN 3.5 g/dL (3.4-5.0); ALKALINE PHOSPHATASE 76 U/L (46-116); NT-PRO BRAIN NAT PEPTIDE 1916 pg/mL (<300); SGOT 21 U/L (15-37); SGPT 27 U/L (30-65); TOTAL BILIRUBIN 1.2 mg/dL (<0.1-1.0); TOTAL PROTEIN 6.3 g/dL (6.4-8.2); TROPONIN-I LEVEL <0.06 ng/mL (<0.06)
[2018-12-27 10:55] VITALS: BP 113/70
[2018-12-27 11:40] VITALS: BP 108/71
[2018-12-27 15:50] VITALS: BP 117/66
[2018-12-27 20:00] VITALS: BP 124/65
[2018-12-28] VITALS: BP 108/60
[2018-12-28 04:00] VITALS: BP 116/71
[2018-12-28 04:19] LABS: ABSOLUTE LYMPHOCYTES 1.2 thou/uL (0.8-5.3); ABSOLUTE MONOCYTES 0.6 thou/uL (0.0-1.2); ABSOLUTE NEUTROPHILS 8.8 thou/uL (1.6-8.1); BASOPHILS 0.2 %; HEMATOCRIT 40.5 % (42.0-52.0); HEMOGLOBIN 13.3 gm/dL (14.0-18.0); MCH 31.1 pg (26.0-34.0); MCV 94.4 fL (80.0-100.0); MPV 8.6 fl. (7.2-11.1); NUCLEATED RBCS 0 /100WBC; PLATELET COUNT* 145 thou/uL (150-400); POLYS 82.8 %; RBC 4.29 mil/uL (4.50-6.00); RDW-CV 16.6 % (10.5-14.5); WBC 10.7 thou/uL (4.0-11.0)
[2018-12-28 04:36] LABS: CALCIUM 8.8 mg/dL (8.5-10.1); CREATININE 1.3 mg/dL (0.6-1.3); POTASSIUM 3.8 mmol/L (3.5-5.1)
[2018-12-28 07:45] VITALS: BP 100/55
--- NOTE | 2018-12-28 11:14 | EKG ---
[place] [address] ELECTROCARDIOGRAM REPORT Name: NEEL CLANCY Room: [address] ADM IN M.R.#: [id number] Admission: 12/27/18 Attend Phys: Abhishek Carlton MD Discharge: Date of : 34 Report #: [id number] THIS REPORT FOR: //name// [facility] ED Test Date: 2018-12-27 Test Time: 09:14:12 Pat Name: NEEL CLANCY Department: Room: [facility] Gender: Unload Associate: : 1935 Requested By: Dante Hughes Order Number: [id number] MD: Antonio Hill Measurements Intervals [place] Rate: 69 P: -46 IA: 163 QRS: -48 QRSD: 233 T: 93 QT: 543 QTc: 582 Interpretive Statements Atrial-sensed ventricular-paced rhythm No further analysis attempted due to paced rhythm Compared to ECG 11/17/2018 11:45:09 No significant changes Electronically Signed On 12-28-2018 11:14:40 CDT by Antonio Hill [email or web address] <ELECTRONICALLY SIGNED> By: [place] MD, [facility] 12/28/18 1114 3 3 China Hill MD, [facility] /EPI
[2018-12-28 11:55] VITALS: BP 93/52
[2018-12-28 16:00] VITALS: BP 98/58
[2018-12-28 20:00] VITALS: BP 109/64
[2018-12-29] VITALS: BP 104/58
[2018-12-29 04:00] VITALS: BP 122/81
[2018-12-29 05:07] LABS: ABSOLUTE BASOPHILS 0.1 thou/uL (0.0-0.2); ABSOLUTE EOSINOPHILS 0.2 thou/uL (0.0-0.7); ABSOLUTE LYMPHOCYTES 2.3 thou/uL (0.8-5.3); ABSOLUTE MONOCYTES 0.9 thou/uL (0.0-1.2); ABSOLUTE NEUTROPHILS 8.5 thou/uL (1.6-8.1); BASOPHILS 0.5 %; EOSINOPHILS 1.4 %; HEMATOCRIT 43.1 % (42.0-52.0); HEMOGLOBIN 14.3 gm/dL (14.0-18.0); LYMPHOCYTES 19.5 %; MCH 31.7 pg (26.0-34.0); MCHC 33.3 g/dL (28.0-37.0); MCV 95.3 fL (80.0-100.0); MONOCYTES 7.5 %; MPV 8.6 fl. (7.2-11.1); NUCLEATED RBCS 0 /100WBC; PLATELET COUNT* 156 thou/uL (150-400); POLYS 71.1 %; RBC 4.52 mil/uL (4.50-6.00); RDW-CV 17.4 % (10.5-14.5)
[2018-12-29 05:12] LABS: CALCIUM 8.8 mg/dL (8.5-10.1); CREATININE 1.4 mg/dL (0.6-1.3); POTASSIUM 3.9 mmol/L (3.5-5.1)
[2018-12-29 08:00] VITALS: BP 107/49
[2018-12-29 11:30] VITALS: BP 93/55
[2018-12-29] MEDS ORDERED: SPIRONOLACTONE25 M1 PO (14:05)
== END 2018-12-29 15:20 | disposition home health service (06) | DRG 291 ==
LOC: M.ERS 09:05 → M.2W 10:24 → M.TBA-ER 10:24 → M.2W 10:24
PROVIDERS: Family Medicine; ADMIT Internal Medicine
DX: I11.0 Hypertensive heart disease with heart failure (principal); J96.20 Acute and chronic respiratory failure, unspecified whether with hypoxia or hypercapnia; Z68.41 Body mass index [BMI] 40.0-44.9, adult; I50.33 Acute on chronic diastolic (congestive) heart failure; Z96.641 Presence of right artificial hip joint; M19.90 Unspecified osteoarthritis, unspecified site; E03.9 Hypothyroidism, unspecified; E66.01 Morbid (severe) obesity due to excess calories; I48.91 Unspecified atrial fibrillation; I25.10 Atherosclerotic heart disease of native coronary artery without angina pectoris; J44.9 Chronic obstructive pulmonary disease, unspecified; G47.33 Obstructive sleep apnea (adult) (pediatric); Z79.899 Other long term (current) drug therapy; Z79.82 Long term (current) use of aspirin; Z79.51 Long term (current) use of inhaled steroids; Z95.0 Presence of cardiac pacemaker; Z79.01 Long term (current) use of anticoagulants; I25.2 Old myocardial infarction; Z87.891 Personal history of nicotine dependence